=== PATIENT | female | born 1940 | race Caucasian/White ===

== ENCOUNTER 2019-12-17 11:13 | Inpatient (IN) | payer OTHER, SELFPAY ==
[~2019-12-17] VITALS: Ht 162.6 cm; Wt 94.6 kg
[2019-12-17 11:13] VITALS: BP_SYST 178
[2019-12-17] MEDS ORDERED: LR 500 ML IV.SOLN IV ONE (11:53)
[2019-12-17] MEDS ORDERED: BUPIVACAINE /EPINEPHRINE/PF 0.25% 30 ML VIAL INJ ONE (11:53)
[2019-12-17] MEDS ORDERED: ROCURONIUM BROMIDE 10 MG/ML (ZEMURON) IV ONE (11:53)
[2019-12-17] MEDS ORDERED: SEVOFLURANE 15 MIN GAS INH ONE (11:53)
[2019-12-17 12:01] LABS: BASOPHILS # (AUTO) 0.1 K/uL (0.0-0.2); EOSINOPHILS # (AUTO) 0.1 K/uL (0.0-0.4); EOSINOPHILS % (AUTO) 0.9 % (0.0-4.0); HEMATOCRIT 37.8 % (36-48); HEMOGLOBIN 12.8 g/dL (12.0-16.0); LYMPHOCYTES # (AUTO) 1.3 K/uL (1.0-5.5); LYMPHOCYTES % (AUTO) 12.9 % (20.5-51.5); MEAN CORPUSCULAR HEMOGLOBIN 31 pg (27-31); MEAN CORPUSCULAR HGB CONC 34 % (32-36); MEAN CORPUSCULAR VOLUME 93 fL (79.0-98.0); MONOCYTES % (AUTO) 9.8 % (1.7-9.3); NEUTROPHILS # (AUTO) 7.5 K/uL (1.8-7.7); NEUTROPHILS % (AUTO) 75.4 % (40.0-70.0); PLATELET COUNT (AUTO) 336 K/uL (130-430); RED BLOOD CELL COUNT(AUTO) 4.08 MIL/uL (4.2-6.2); RED CELL DISTRIBUTION WIDTH 14.1 % (9.0-15.0)
[2019-12-17 12:12] LABS: CALCIUM 9.1 mg/dL (8.4-11.0); CHLORIDE 102 mmol/L (98-107); CREATININE 0.78 mg/dL (0.55-1.30); GLUCOSE 128 mg/dL (70-99); POTASSIUM 4.3 mmol/L (3.5-5.1); SODIUM SERUM 140 mmol/L (136-145); UREA NITROGEN, BLOOD 25 mg/dL (8-21)
[2019-12-17 12:16] LABS: ALANINE AMINOTRANSFERASE 31 U/L (12-78); ALBUMIN 3.1 g/dL (3.4-4.8); ASPARTATE AMINOTRANSFERASE 28 U/L (10-37); C-REACTIVE PROTEIN QUANT 1.4 mg/dL (0-0.5); LACTATE DEHYDROGENASE 245 U/L (81-234); TOTAL BILIRUBIN 0.5 mg/dL (0.0-1.0)
[2019-12-17 12:19] LABS: ANION GAP 0 (5-15)
[2019-12-17 12:38] LABS: INR 1.1 (0.8-1.2)
[2019-12-17 12:47] LABS: FIBRINOGEN 551 mg/dL (200-400)
[2019-12-17] MEDS ORDERED: LEVO75TA7 PO (13:28)
[2019-12-17] MEDS ORDERED: CETI1TAB2 PO (13:28)
[2019-12-17] MEDS ORDERED: MULT-1164 PO (13:28)
[2019-12-17] MEDS ORDERED: FURO-149 PO (13:28)
[2019-12-17] MEDS ORDERED: POTA20TA83 PO (13:28)
[2019-12-17] MEDS ORDERED: CYAN100010 PO (13:28)
[2019-12-17] MEDS ORDERED: APIX5TAB PO (13:28)
[2019-12-17] MEDS ORDERED: AMI200 PO (13:28)
[2019-12-17] MEDS ORDERED: GUAI-723 PO (13:28)
[2019-12-17] MEDS ORDERED: FLUT1BLS5 IH (13:28)
[2019-12-17] MEDS ORDERED: LEVOFLOXACIN 500 MG/D5W 100 ML IV ONE (13:30)
[2019-12-17] MEDS ORDERED: DEXAMETHASONE SOD PHOSPHATE 10 MG/ML VIAL IVP ONE (13:30)
[2019-12-17] MEDS ORDERED: AZITHROMYCIN 500 MG in NS 250 ML IV ONE (13:30)
[2019-12-17] MEDS ORDERED: AZITHROMYCIN 500 MG/VIAL (ZITHROMAX) IV ONE (13:53)
[2019-12-17 17:18] VITALS: BP_SYST 168
[2019-12-17 17:40] VITALS: BP_SYST 150
[2019-12-17] MEDS: IPRATROPIUM/ALBUTEROL SULFATE 3 ML AMPUL.NEB (DUONEB) INH SCH (19:21)
[2019-12-17 19:45] VITALS: BP_SYST 140
[2019-12-17] MEDS: APIXABAN 2.5 MG TABLET PO SCH (21:57)
[2019-12-17 23:30] VITALS: BP_SYST 146
[2019-12-18] VITALS (13 sets, daily range): BP systolic 132–169
[2019-12-18] MEDS: IPRATROPIUM/ALBUTEROL SULFATE 3 ML AMPUL.NEB (DUONEB) INH SCH ×4 (01:00→19:30)
[2019-12-18] MEDS: LEVOTHYROXINE SODIUM 0.075 MG TABLET PO SCH (06:40)
[2019-12-18 07:10] LABS: BASOPHILS % (AUTO) 0.2 % (0.0-2.0); HEMOGLOBIN 11.7 g/dL (12.0-16.0); LYMPHOCYTES # (AUTO) 0.5 K/uL (1.0-5.5); MEAN CORPUSCULAR HEMOGLOBIN 31 pg (27-31); MEAN CORPUSCULAR HGB CONC 33 % (32-36); MEAN CORPUSCULAR VOLUME 92 fL (79.0-98.0); MONOCYTES # (AUTO) 0.2 K/uL (0.0-1.0); MONOCYTES % (AUTO) 3.3 % (1.7-9.3); NEUTROPHILS # (AUTO) 5.6 K/uL (1.8-7.7); NEUTROPHILS % (AUTO) 88.5 % (40.0-70.0); PLATELET COUNT (AUTO) 303 K/uL (130-430); RED BLOOD CELL COUNT(AUTO) 3.81 MIL/uL (4.2-6.2); WHITE BLOOD COUNT (AUTO) 6.4 K/uL (4.8-10.8)
[2019-12-18] MEDS: AMIODARONE HCL 200 MG TABLET PO SCH (09:00)
[2019-12-18 09:25] LABS: ALANINE AMINOTRANSFERASE 27 U/L (12-78); ALBUMIN 2.8 g/dL (3.4-4.8); ASPARTATE AMINOTRANSFERASE 23 U/L (10-37); C-REACTIVE PROTEIN QUANT 1.2 mg/dL (0-0.5); CALCIUM 9.2 mg/dL (8.4-11.0); CHLORIDE 102 mmol/L (98-107); CREATININE 0.72 mg/dL (0.55-1.30); GLUCOSE 127 mg/dL (70-99); POTASSIUM 4.3 mmol/L (3.5-5.1); SODIUM SERUM 139 mmol/L (136-145); THYROID STIMULATING HORMONE 0.56 uIu/mL (0.34-4.82); TOTAL BILIRUBIN 0.4 mg/dL (0.0-1.0); UREA NITROGEN, BLOOD 21 mg/dL (8-21)
[2019-12-18 09:32] LABS: ANION GAP < 3 (5-15)
[2019-12-18] MEDS: DEXAMETHASONE SOD PHOSPHATE 10 MG/ML VIAL IVP SCH (09:35)
[2019-12-18] MEDS: APIXABAN 2.5 MG TABLET PO SCH ×2 (09:36→20:45)
[2019-12-18] MEDS: CYANOCOBALAMIN 1000 mCg TABLET PO SCH (09:36)
[2019-12-18] MEDS ORDERED: CHOLECALCIFEROL (VITAMIN D3) 2,000 UNIT TABLET PO ONE (12:00)
[2019-12-18] MEDS ORDERED: ASCORBIC ACID 500 MG TABLET PO ONE (12:00)
[2019-12-18] MEDS ORDERED: IVERMECTIN 3 MG TABLET PO ONE (12:30)
[2019-12-18] MEDS: cefTRIAXone 1 GM in D5W 50 ML IV SCH (13:12)
[2019-12-18] MEDS: DOXYCYCLINE HYCLATE 100 MG CAPSULE PO SCH (20:46)
[2019-12-19] VITALS (24 sets, daily range): BP systolic 133–201
[2019-12-19] MEDS: IPRATROPIUM/ALBUTEROL SULFATE 3 ML AMPUL.NEB (DUONEB) INH SCH ×4 (01:37→19:15)
[2019-12-19 05:41] LABS: BASOPHILS % (AUTO) 0.1 % (0.0-2.0); HEMATOCRIT 33.7 % (36-48); HEMOGLOBIN 11.2 g/dL (12.0-16.0); LYMPHOCYTES # (AUTO) 0.7 K/uL (1.0-5.5); LYMPHOCYTES % (AUTO) 7.3 % (20.5-51.5); MEAN CORPUSCULAR HEMOGLOBIN 31 pg (27-31); MEAN CORPUSCULAR HGB CONC 33 % (32-36); MEAN CORPUSCULAR VOLUME 92 fL (79.0-98.0); MONOCYTES # (AUTO) 0.7 K/uL (0.0-1.0); MONOCYTES % (AUTO) 6.7 % (1.7-9.3); NEUTROPHILS # (AUTO) 8.4 K/uL (1.8-7.7); NEUTROPHILS % (AUTO) 85.9 % (40.0-70.0); PLATELET COUNT (AUTO) 291 K/uL (130-430); RED BLOOD CELL COUNT(AUTO) 3.66 MIL/uL (4.2-6.2); RED CELL DISTRIBUTION WIDTH 14.1 % (9.0-15.0); WHITE BLOOD COUNT (AUTO) 9.8 K/uL (4.8-10.8)
[2019-12-19 06:05] LABS: ALANINE AMINOTRANSFERASE 29 U/L (12-78); ALBUMIN 2.6 g/dL (3.4-4.8); ASPARTATE AMINOTRANSFERASE 24 U/L (10-37); C-REACTIVE PROTEIN QUANT 0.6 mg/dL (0-0.5); CALCIUM 9.3 mg/dL (8.4-11.0); CHLORIDE 104 mmol/L (98-107); CREATININE 0.69 mg/dL (0.55-1.30); GLUCOSE 111 mg/dL (70-99); SODIUM SERUM 141 mmol/L (136-145); TOTAL BILIRUBIN 0.4 mg/dL (0.0-1.0); UREA NITROGEN, BLOOD 23 mg/dL (8-21)
[2019-12-19 06:42] LABS: ANION GAP < 3 (5-15)
[2019-12-19] MEDS: LEVOTHYROXINE SODIUM 0.075 MG TABLET PO SCH (07:06)
[2019-12-19] MEDS: DEXAMETHASONE SOD PHOSPHATE 10 MG/ML VIAL IVP SCH (08:37)
[2019-12-19] MEDS: APIXABAN 2.5 MG TABLET PO SCH ×2 (08:40→20:50)
[2019-12-19] MEDS: DOXYCYCLINE HYCLATE 100 MG CAPSULE PO SCH ×2 (08:41→21:00)
[2019-12-19] MEDS: CYANOCOBALAMIN 1000 mCg TABLET PO SCH (08:41)
[2019-12-19] MEDS: ASCORBIC ACID 500 MG TABLET PO SCH (08:41)
[2019-12-19] MEDS: CHOLECALCIFEROL (VITAMIN D3) 2,000 UNIT TABLET PO SCH (08:43)
[2019-12-19] MEDS: AMIODARONE HCL 200 MG TABLET PO SCH (09:00)
[2019-12-19] MEDS: cefTRIAXone 1 GM in D5W 50 ML IV SCH (12:30)
[2019-12-19] MEDS ORDERED: LORazepam 2 MG/ML VIAL IVP ONE (16:15)
[2019-12-19] MEDS: ENALAPRILAT DIHYDRATE 1.25 MG/ML VIAL IVP PRN (22:05)
[2019-12-19] MEDS: LORazepam 2 MG/ML VIAL IVP PRN (22:06)
[2019-12-20] VITALS (27 sets, daily range): BP systolic 94–167
[2019-12-20] MEDS: IPRATROPIUM/ALBUTEROL SULFATE 3 ML AMPUL.NEB (DUONEB) INH SCH ×4 (01:22→19:27)
[2019-12-20] MEDS: LEVOTHYROXINE SODIUM 0.075 MG TABLET PO SCH (06:15)
[2019-12-20 06:34] LABS: BASOPHILS # (AUTO) 0.1 K/uL (0.0-0.2); BASOPHILS % (AUTO) 0.3 % (0.0-2.0); HEMATOCRIT 36.5 % (36-48); HEMOGLOBIN 11.9 g/dL (12.0-16.0); LYMPHOCYTES # (AUTO) 0.5 K/uL (1.0-5.5); LYMPHOCYTES % (AUTO) 2.6 % (20.5-51.5); MEAN CORPUSCULAR HEMOGLOBIN 30 pg (27-31); MEAN CORPUSCULAR HGB CONC 33 % (32-36); MEAN CORPUSCULAR VOLUME 93 fL (79.0-98.0); MONOCYTES # (AUTO) 1.2 K/uL (0.0-1.0); MONOCYTES % (AUTO) 6.6 % (1.7-9.3); NEUTROPHILS # (AUTO) 16.4 K/uL (1.8-7.7); NEUTROPHILS % (AUTO) 90.5 % (40.0-70.0); PLATELET COUNT (AUTO) 331 K/uL (130-430); RED BLOOD CELL COUNT(AUTO) 3.92 MIL/uL (4.2-6.2); WHITE BLOOD COUNT (AUTO) 18.2 K/uL (4.8-10.8)
[2019-12-20 07:26] LABS: ALANINE AMINOTRANSFERASE 32 U/L (12-78); ALBUMIN 2.8 g/dL (3.4-4.8); ASPARTATE AMINOTRANSFERASE 23 U/L (10-37); CALCIUM 9.5 mg/dL (8.4-11.0); CHLORIDE 102 mmol/L (98-107); CREATININE 0.77 mg/dL (0.55-1.30); GLUCOSE 125 mg/dL (70-99); POTASSIUM 3.7 mmol/L (3.5-5.1); SODIUM SERUM 141 mmol/L (136-145); TOTAL BILIRUBIN 0.4 mg/dL (0.0-1.0); UREA NITROGEN, BLOOD 29 mg/dL (8-21)
[2019-12-20 08:06] LABS: ANION GAP < 3 (5-15)
[2019-12-20] MEDS: DEXAMETHASONE SOD PHOSPHATE 10 MG/ML VIAL IVP SCH (08:45)
[2019-12-20] MEDS: CHOLECALCIFEROL (VITAMIN D3) 2,000 UNIT TABLET PO SCH (08:46)
[2019-12-20] MEDS: ASCORBIC ACID 500 MG TABLET PO SCH (08:46)
[2019-12-20] MEDS: APIXABAN 2.5 MG TABLET PO SCH ×2 (08:46→21:03)
[2019-12-20] MEDS: AMIODARONE HCL 200 MG TABLET PO SCH (08:47)
[2019-12-20] MEDS: CYANOCOBALAMIN 1000 mCg TABLET PO SCH (08:48)
[2019-12-20] MEDS: LORazepam 2 MG/ML VIAL IVP PRN (08:51)
[2019-12-20] MEDS: DOXYCYCLINE HYCLATE 100 MG CAPSULE PO SCH ×2 (09:06→21:00)
[2019-12-20] MEDS: cefTRIAXone 1 GM in D5W 50 ML IV SCH (12:00)
[2019-12-20] MEDS ORDERED: PROPOFOL 200MG/ 20ML VIAL (DIPRIVAN) IV ONE (15:15)
[2019-12-20] MEDS: PROPOFOL DRIP 1000 MG/ 100 ML BTL IV PRN (15:20)
[2019-12-20] MEDS ORDERED: PROPOFOL DRIP 100 ML IV ONE (15:26)
[2019-12-20] MEDS ORDERED: ETOMIDATE 20 MG/ 10 ML VIAL (AMIDATE) IVP ONE (16:24)
[2019-12-20] MEDS ORDERED: SUCCINYLCHOLINE CHLORIDE 20 MG/ML(QUELICIN) IVP ONE (16:24)
[2019-12-20] MEDS: VANCOMYCIN HCL 1,000 MG in NS 250 ML IV SCH (20:30)
[2019-12-20] MEDS: methylPREDNISolone SOD SUCC 40 MG/ML VIAL IVP SCH (20:59)
[2019-12-21] VITALS (30 sets, daily range): BP systolic 101–136
[2019-12-21] MEDS: IPRATROPIUM/ALBUTEROL SULFATE 3 ML AMPUL.NEB (DUONEB) INH SCH ×4 (01:02→19:48)
[2019-12-21] MEDS: PROPOFOL DRIP 1000 MG/ 100 ML BTL IV PRN ×4 (01:44→16:24)
[2019-12-21 06:05] LABS: BILIRUBIN,URINE NEGATIVE (NEGATIVE); BLOOD, URINE 3+ (NEGATIVE); CLARITY/URINE SL CLOUDY (CLEAR); COLOR,URINE YELLOW (YELLOW); GLUCOSE,URINE NEGATIVE (NEGATIVE); KETONES,URINE 1+ (NEGATIVE); LEUKOCYTE ESTERASE ,URINE TRACE (NEGATIVE); NITRITE, URINE NEGATIVE (NEGATIVE); PH,URINE 5.5 (5.0-8.0); PROTEIN URINE NEGATIVE (NEGATIVE); UROBILINOGEN,URINE 0.2 (0.2-1.0)
[2019-12-21 06:09] LABS: RBC,URINE >100 /HPF (0-3)
[2019-12-21 06:10] LABS: BACTERIA,URINE FEW /HPF (None Seen)
[2019-12-21] MEDS: LEVOTHYROXINE SODIUM 0.075 MG TABLET PO SCH (06:14)
[2019-12-21 06:19] LABS: BASOPHILS % (AUTO) 0.1 % (0.0-2.0); EOSINOPHILS % (AUTO) 0.1 % (0.0-4.0); HEMATOCRIT 30.9 % (36-48); HEMOGLOBIN 10.2 g/dL (12.0-16.0); LYMPHOCYTES # (AUTO) 0.4 K/uL (1.0-5.5); LYMPHOCYTES % (AUTO) 2.6 % (20.5-51.5); MEAN CORPUSCULAR HEMOGLOBIN 30 pg (27-31); MEAN CORPUSCULAR HGB CONC 33 % (32-36); MEAN CORPUSCULAR VOLUME 92 fL (79.0-98.0); MONOCYTES # (AUTO) 0.9 K/uL (0.0-1.0); MONOCYTES % (AUTO) 6.1 % (1.7-9.3); NEUTROPHILS # (AUTO) 13.9 K/uL (1.8-7.7); NEUTROPHILS % (AUTO) 91.1 % (40.0-70.0); PLATELET COUNT (AUTO) 242 K/uL (130-430); RED BLOOD CELL COUNT(AUTO) 3.35 MIL/uL (4.2-6.2); RED CELL DISTRIBUTION WIDTH 13.9 % (9.0-15.0); WHITE BLOOD COUNT (AUTO) 15.2 K/uL (4.8-10.8)
[2019-12-21 06:25] LABS: ALANINE AMINOTRANSFERASE 25 U/L (12-78); ALBUMIN 2.3 g/dL (3.4-4.8); ANION GAP 1 (5-15); ASPARTATE AMINOTRANSFERASE 43 U/L (10-37); CHLORIDE 106 mmol/L (98-107); CREATININE 0.74 mg/dL (0.55-1.30); GLUCOSE 148 mg/dL (70-99); POTASSIUM 3.5 mmol/L (3.5-5.1); SODIUM SERUM 143 mmol/L (136-145); TOTAL BILIRUBIN 0.9 mg/dL (0.0-1.0); UREA NITROGEN, BLOOD 29 mg/dL (8-21)
[2019-12-21] MEDS: CHOLECALCIFEROL (VITAMIN D3) 2,000 UNIT TABLET PO SCH (08:38)
[2019-12-21] MEDS: ASCORBIC ACID 500 MG TABLET PO SCH (08:38)
[2019-12-21] MEDS: DOXYCYCLINE HYCLATE 100 MG CAPSULE PO SCH ×2 (08:38→21:45)
[2019-12-21] MEDS: AMIODARONE HCL 200 MG TABLET PO SCH (08:39)
[2019-12-21] MEDS: methylPREDNISolone SOD SUCC 40 MG/ML VIAL IVP SCH ×2 (08:40→21:45)
[2019-12-21] MEDS: APIXABAN 2.5 MG TABLET PO SCH ×2 (08:41→21:45)
[2019-12-21] MEDS: CYANOCOBALAMIN 1000 mCg TABLET PO SCH (08:48)
[2019-12-21] MEDS ORDERED: methylPREDNISolone SOD SUCC 40 MG/ML VIAL ONE (09:16)
[2019-12-21] MEDS: cefTRIAXone 1 GM in D5W 50 ML IV SCH (11:56)
[2019-12-21] MEDS: VANCOMYCIN HCL 1,000 MG in NS 250 ML IV SCH (16:21)
[2019-12-22] VITALS (30 sets, daily range): BP systolic 109–144
[2019-12-22] MEDS: IPRATROPIUM/ALBUTEROL SULFATE 3 ML AMPUL.NEB (DUONEB) INH SCH ×4 (01:00→20:02)
[2019-12-22] MEDS: PROPOFOL DRIP 1000 MG/ 100 ML BTL IV PRN ×3 (05:12→18:10)
[2019-12-22] MEDS: LEVOTHYROXINE SODIUM 0.075 MG TABLET PO SCH (06:50)
[2019-12-22] MEDS ORDERED: COMMUNICATION ORDER XX ONE (08:15)
[2019-12-22 08:24] LABS: BASOPHILS # (AUTO) 0.1 K/uL (0.0-0.2); BASOPHILS % (AUTO) 0.4 % (0.0-2.0); HEMATOCRIT 29.9 % (36-48); LYMPHOCYTES # (AUTO) 0.5 K/uL (1.0-5.5); LYMPHOCYTES % (AUTO) 3.8 % (20.5-51.5); MEAN CORPUSCULAR HEMOGLOBIN 30 pg (27-31); MEAN CORPUSCULAR HGB CONC 33 % (32-36); MEAN CORPUSCULAR VOLUME 91 fL (79.0-98.0); MONOCYTES # (AUTO) 0.8 K/uL (0.0-1.0); MONOCYTES % (AUTO) 5.9 % (1.7-9.3); NEUTROPHILS # (AUTO) 12.6 K/uL (1.8-7.7); NEUTROPHILS % (AUTO) 89.9 % (40.0-70.0); PLATELET COUNT (AUTO) 209 K/uL (130-430); RED BLOOD CELL COUNT(AUTO) 3.28 MIL/uL (4.2-6.2); RED CELL DISTRIBUTION WIDTH 14.2 % (9.0-15.0)
[2019-12-22] MEDS: methylPREDNISolone SOD SUCC 40 MG/ML VIAL IVP SCH ×2 (08:33→22:44)
[2019-12-22] MEDS: APIXABAN 2.5 MG TABLET NG SCH ×2 (08:34→22:45)
[2019-12-22] MEDS: AMIODARONE HCL 200 MG TABLET NG SCH (08:34)
[2019-12-22] MEDS: ASCORBIC ACID 500 MG TABLET NG SCH (08:35)
[2019-12-22 08:58] LABS: ALANINE AMINOTRANSFERASE 29 U/L (12-78); ALBUMIN 2.1 g/dL (3.4-4.8); ANION GAP 3 (5-15); ASPARTATE AMINOTRANSFERASE 36 U/L (10-37); CALCIUM 8.5 mg/dL (8.4-11.0); CHLORIDE 103 mmol/L (98-107); CREATININE 0.76 mg/dL (0.55-1.30); GLUCOSE 173 mg/dL (70-99); POTASSIUM 3.1 mmol/L (3.5-5.1); SODIUM SERUM 141 mmol/L (136-145); UREA NITROGEN, BLOOD 32 mg/dL (8-21)
[2019-12-22] MEDS: CYANOCOBALAMIN 1000 mCg TABLET NG SCH (09:00)
[2019-12-22] MEDS: CHOLECALCIFEROL (VITAMIN D3) 2,000 UNIT TABLET NG SCH (10:21)
[2019-12-22] MEDS: DOXYCYCLINE HYCLATE 100 MG CAPSULE NG SCH ×2 (10:23→22:44)
[2019-12-22] MEDS: cefTRIAXone 1 GM in D5W 50 ML IV SCH (11:21)
[2019-12-22] MEDS ORDERED: KCL 20 mEq in 100 mL (PREMIX) 100 ML IV ONE (12:30)
[2019-12-22] MEDS: VANCOMYCIN HCL 1,000 MG in NS 250 ML IV SCH (17:17)
[2019-12-23] VITALS (35 sets, daily range): BP systolic 109–146
[2019-12-23] MEDS: IPRATROPIUM/ALBUTEROL SULFATE 3 ML AMPUL.NEB (DUONEB) INH SCH ×4 (00:53→19:53)
[2019-12-23 06:18] LABS: BASOPHILS # (AUTO) 0.1 K/uL (0.0-0.2); BASOPHILS % (AUTO) 0.5 % (0.0-2.0); EOSINOPHILS # (AUTO) 0.2 K/uL (0.0-0.4); EOSINOPHILS % (AUTO) 1.2 % (0.0-4.0); HEMATOCRIT 30.6 % (36-48); HEMOGLOBIN 10.2 g/dL (12.0-16.0); LYMPHOCYTES # (AUTO) 0.4 K/uL (1.0-5.5); LYMPHOCYTES % (AUTO) 2.3 % (20.5-51.5); MEAN CORPUSCULAR HEMOGLOBIN 30 pg (27-31); MEAN CORPUSCULAR HGB CONC 33 % (32-36); MEAN CORPUSCULAR VOLUME 91 fL (79.0-98.0); MONOCYTES # (AUTO) 0.4 K/uL (0.0-1.0); MONOCYTES % (AUTO) 2.4 % (1.7-9.3); NEUTROPHILS # (AUTO) 14.7 K/uL (1.8-7.7); NEUTROPHILS % (AUTO) 93.6 % (40.0-70.0); PLATELET COUNT (AUTO) 235 K/uL (130-430); RED BLOOD CELL COUNT(AUTO) 3.37 MIL/uL (4.2-6.2); RED CELL DISTRIBUTION WIDTH 14.1 % (9.0-15.0); WHITE BLOOD COUNT (AUTO) 15.7 K/uL (4.8-10.8)
[2019-12-23] MEDS: LEVOTHYROXINE SODIUM 0.075 MG TABLET NG SCH (06:34)
[2019-12-23 06:43] LABS: ALANINE AMINOTRANSFERASE 28 U/L (12-78); ANION GAP 4 (5-15); ASPARTATE AMINOTRANSFERASE 25 U/L (10-37); CALCIUM 8.6 mg/dL (8.4-11.0); CHLORIDE 102 mmol/L (98-107); CREATININE 0.78 mg/dL (0.55-1.30); GLUCOSE 155 mg/dL (70-99); POTASSIUM 3.4 mmol/L (3.5-5.1); SODIUM SERUM 139 mmol/L (136-145); UREA NITROGEN, BLOOD 29 mg/dL (8-21)
[2019-12-23] MEDS ORDERED: ATROPINE SULFATE 1 MG/10 ML SYRINGE IVP ONE (08:45)
[2019-12-23] MEDS ORDERED: POTASSIUM CHLORIDE 20 MEQ/PKT PACKET PO ONE (08:45)
[2019-12-23] MEDS ORDERED: FUROSEMIDE 20 MG/2 ML VIAL IVP ONE (08:45)
[2019-12-23] MEDS: BUDESONIDE 0.5 MG/2 ML AMPUL.NEB INH SCH ×2 (09:00→19:54)
[2019-12-23] MEDS: AMIODARONE HCL 200 MG TABLET NG SCH (09:00)
[2019-12-23] MEDS: methylPREDNISolone SOD SUCC 40 MG/ML VIAL IVP SCH ×2 (09:07→20:42)
[2019-12-23 09:14] LABS: ERYTHROCYTE SEDIMENTATION RATE 49 MM/HR (0-20)
[2019-12-23] MEDS: CYANOCOBALAMIN 1000 mCg TABLET NG SCH (09:19)
[2019-12-23] MEDS: ASCORBIC ACID 500 MG TABLET NG SCH (09:19)
[2019-12-23] MEDS: DOXYCYCLINE HYCLATE 100 MG CAPSULE NG SCH (09:19)
[2019-12-23] MEDS: CHOLECALCIFEROL (VITAMIN D3) 2,000 UNIT TABLET NG SCH (09:19)
[2019-12-23] MEDS: APIXABAN 2.5 MG TABLET NG SCH ×2 (09:20→20:45)
[2019-12-23] MEDS: cefTRIAXone 1 GM in D5W 50 ML IV SCH (11:43)
[2019-12-23] MEDS: LORazepam 2 MG/ML VIAL IVP PRN ×3 (13:43→21:18)
[2019-12-23] MEDS: VANCOMYCIN HCL 1,000 MG in NS 250 ML IV SCH (17:16)
[2019-12-23] MEDS: THEOPHYLLINE ANHYDROUS 80 MG/15 ML UDC PO SCH (21:00)
[2019-12-24] VITALS (34 sets, daily range): BP systolic 113–148
[2019-12-24] MEDS: IPRATROPIUM/ALBUTEROL SULFATE 3 ML AMPUL.NEB (DUONEB) INH SCH ×4 (01:00→19:51)
[2019-12-24] MEDS: PROPOFOL DRIP 1000 MG/ 100 ML BTL IV PRN (05:01)
[2019-12-24] MEDS: LORazepam 2 MG/ML VIAL IVP PRN ×4 (05:15→14:15)
[2019-12-24] MEDS: LEVOTHYROXINE SODIUM 0.075 MG TABLET NG SCH (06:04)
[2019-12-24 06:31] LABS: BASOPHILS % (AUTO) 0.2 % (0.0-2.0); HEMATOCRIT 30.4 % (36-48); LYMPHOCYTES # (AUTO) 0.4 K/uL (1.0-5.5); LYMPHOCYTES % (AUTO) 3.6 % (20.5-51.5); MEAN CORPUSCULAR HEMOGLOBIN 30 pg (27-31); MEAN CORPUSCULAR HGB CONC 33 % (32-36); MEAN CORPUSCULAR VOLUME 91 fL (79.0-98.0); MONOCYTES # (AUTO) 0.5 K/uL (0.0-1.0); MONOCYTES % (AUTO) 4.6 % (1.7-9.3); NEUTROPHILS # (AUTO) 10.2 K/uL (1.8-7.7); NEUTROPHILS % (AUTO) 91.6 % (40.0-70.0); PLATELET COUNT (AUTO) 221 K/uL (130-430); RED BLOOD CELL COUNT(AUTO) 3.35 MIL/uL (4.2-6.2); RED CELL DISTRIBUTION WIDTH 14.2 % (9.0-15.0); WHITE BLOOD COUNT (AUTO) 11.2 K/uL (4.8-10.8)
[2019-12-24] MEDS: BUDESONIDE 0.5 MG/2 ML AMPUL.NEB INH SCH ×2 (07:27→19:52)
[2019-12-24 07:37] LABS: ALANINE AMINOTRANSFERASE 30 U/L (12-78); ANION GAP 3 (5-15); ASPARTATE AMINOTRANSFERASE 18 U/L (10-37); CALCIUM 8.5 mg/dL (8.4-11.0); CHLORIDE 104 mmol/L (98-107); CREATININE 0.74 mg/dL (0.55-1.30); GLUCOSE 195 mg/dL (70-99); POTASSIUM 3.4 mmol/L (3.5-5.1); SODIUM SERUM 139 mmol/L (136-145); TOTAL BILIRUBIN 0.6 mg/dL (0.0-1.0); UREA NITROGEN, BLOOD 38 mg/dL (8-21)
[2019-12-24] MEDS: methylPREDNISolone SOD SUCC 40 MG/ML VIAL IVP SCH ×2 (08:15→20:46)
[2019-12-24] MEDS: ASCORBIC ACID 500 MG TABLET NG SCH (08:16)
[2019-12-24] MEDS: APIXABAN 2.5 MG TABLET NG SCH ×2 (08:16→20:47)
[2019-12-24] MEDS: CYANOCOBALAMIN 1000 mCg TABLET NG SCH (08:16)
[2019-12-24] MEDS: CHOLECALCIFEROL (VITAMIN D3) 2,000 UNIT TABLET NG SCH (08:17)
[2019-12-24] MEDS: THEOPHYLLINE ANHYDROUS 80 MG/15 ML UDC PO SCH ×2 (08:24→20:46)
[2019-12-24] MEDS ORDERED: THEOPHYLLINE ANHYDROUS 200 MG TAB.SR.12H PO SCH (09:00)
[2019-12-24] MEDS ORDERED: POTASSIUM CHLORIDE 20 MEQ/PKT PACKET PO ONE (09:15)
[2019-12-24] MEDS: cefTRIAXone 1 GM in D5W 50 ML IV SCH (11:00)
[2019-12-24] MEDS: VANCOMYCIN HCL 1,000 MG in NS 250 ML IV SCH (16:31)
[2019-12-24] MEDS: MONTELUKAST 10 MG TABLET PO SCH (18:26)
[2019-12-24] MEDS: QUEtiapine FUMARATE 25 MG TABLET PO SCH (20:46)
[2019-12-25] VITALS (33 sets, daily range): BP systolic 124–144
[2019-12-25] MEDS: IPRATROPIUM/ALBUTEROL SULFATE 3 ML AMPUL.NEB (DUONEB) INH SCH ×4 (01:30→20:10)
[2019-12-25 06:12] LABS: BASOPHILS % (AUTO) 0.2 % (0.0-2.0); HEMATOCRIT 29.6 % (36-48); HEMOGLOBIN 9.7 g/dL (12.0-16.0); LYMPHOCYTES # (AUTO) 0.5 K/uL (1.0-5.5); LYMPHOCYTES % (AUTO) 5.1 % (20.5-51.5); MEAN CORPUSCULAR HEMOGLOBIN 30 pg (27-31); MEAN CORPUSCULAR HGB CONC 33 % (32-36); MEAN CORPUSCULAR VOLUME 92 fL (79.0-98.0); MONOCYTES # (AUTO) 0.5 K/uL (0.0-1.0); MONOCYTES % (AUTO) 4.6 % (1.7-9.3); NEUTROPHILS # (AUTO) 9.6 K/uL (1.8-7.7); NEUTROPHILS % (AUTO) 90.1 % (40.0-70.0); PLATELET COUNT (AUTO) 233 K/uL (130-430); RED BLOOD CELL COUNT(AUTO) 3.23 MIL/uL (4.2-6.2); RED CELL DISTRIBUTION WIDTH 13.9 % (9.0-15.0); WHITE BLOOD COUNT (AUTO) 10.7 K/uL (4.8-10.8)
[2019-12-25] MEDS: LEVOTHYROXINE SODIUM 0.075 MG TABLET NG SCH (06:13)
[2019-12-25 06:50] LABS: ALANINE AMINOTRANSFERASE 25 U/L (12-78); ANION GAP 6 (5-15); ASPARTATE AMINOTRANSFERASE 15 U/L (10-37); CALCIUM 8.1 mg/dL (8.4-11.0); CHLORIDE 111 mmol/L (98-107); CREATININE 0.68 mg/dL (0.55-1.30); GLUCOSE 154 mg/dL (70-99); POTASSIUM 3.8 mmol/L (3.5-5.1); SODIUM SERUM 147 mmol/L (136-145); TOTAL BILIRUBIN 0.7 mg/dL (0.0-1.0); UREA NITROGEN, BLOOD 35 mg/dL (8-21)
[2019-12-25] MEDS: BUDESONIDE 0.5 MG/2 ML AMPUL.NEB INH SCH ×2 (07:17→20:10)
[2019-12-25] MEDS: THEOPHYLLINE ANHYDROUS 80 MG/15 ML UDC PO SCH ×2 (08:58→21:00)
[2019-12-25] MEDS: CHOLECALCIFEROL (VITAMIN D3) 2,000 UNIT TABLET NG SCH (08:59)
[2019-12-25] MEDS: APIXABAN 2.5 MG TABLET NG SCH ×2 (08:59→21:29)
[2019-12-25] MEDS: QUEtiapine FUMARATE 25 MG TABLET PO SCH ×2 (08:59→21:29)
[2019-12-25] MEDS: CYANOCOBALAMIN 1000 mCg TABLET NG SCH (09:00)
[2019-12-25] MEDS: methylPREDNISolone SOD SUCC 40 MG/ML VIAL IVP SCH ×2 (09:00→21:29)
[2019-12-25] MEDS: LORazepam 2 MG/ML VIAL IVP PRN (09:00)
[2019-12-25] MEDS: ASCORBIC ACID 500 MG TABLET NG SCH (09:07)
[2019-12-25] MEDS ORDERED: COMMUNICATION ORDER XX ONE (17:30)
[2019-12-25] MEDS: VANCOMYCIN HCL 1,000 MG in NS 250 ML IV SCH (17:30)
[2019-12-25] MEDS: MONTELUKAST 10 MG TABLET PO SCH (17:32)
[2019-12-26] VITALS (29 sets, daily range): BP systolic 107–145
[2019-12-26] MEDS: IPRATROPIUM/ALBUTEROL SULFATE 3 ML AMPUL.NEB (DUONEB) INH SCH ×4 (01:00→20:00)
[2019-12-26] MEDS: PROPOFOL DRIP 1000 MG/ 100 ML BTL IV PRN ×2 (06:05→17:40)
[2019-12-26 06:24] LABS: BASOPHILS % (AUTO) 0.2 % (0.0-2.0); HEMOGLOBIN 9.5 g/dL (12.0-16.0); LYMPHOCYTES # (AUTO) 0.6 K/uL (1.0-5.5); LYMPHOCYTES % (AUTO) 5.2 % (20.5-51.5); MEAN CORPUSCULAR HEMOGLOBIN 30 pg (27-31); MEAN CORPUSCULAR HGB CONC 33 % (32-36); MEAN CORPUSCULAR VOLUME 91 fL (79.0-98.0); MONOCYTES # (AUTO) 0.4 K/uL (0.0-1.0); MONOCYTES % (AUTO) 3.1 % (1.7-9.3); NEUTROPHILS # (AUTO) 10.6 K/uL (1.8-7.7); NEUTROPHILS % (AUTO) 91.5 % (40.0-70.0); PLATELET COUNT (AUTO) 249 K/uL (130-430); RED CELL DISTRIBUTION WIDTH 13.8 % (9.0-15.0); WHITE BLOOD COUNT (AUTO) 11.5 K/uL (4.8-10.8)
[2019-12-26] MEDS: LEVOTHYROXINE SODIUM 0.075 MG TABLET NG SCH (06:56)
[2019-12-26 06:57] LABS: ALANINE AMINOTRANSFERASE 21 U/L (12-78); ANION GAP 6 (5-15); ASPARTATE AMINOTRANSFERASE 18 U/L (10-37); CALCIUM 8.1 mg/dL (8.4-11.0); CHLORIDE 110 mmol/L (98-107); CREATININE 0.59 mg/dL (0.55-1.30); GLUCOSE 161 mg/dL (70-99); POTASSIUM 3.5 mmol/L (3.5-5.1); SODIUM SERUM 144 mmol/L (136-145); TOTAL BILIRUBIN 0.7 mg/dL (0.0-1.0); UREA NITROGEN, BLOOD 35 mg/dL (8-21)
[2019-12-26] MEDS: BUDESONIDE 0.5 MG/2 ML AMPUL.NEB INH SCH ×2 (08:58→20:00)
[2019-12-26] MEDS: methylPREDNISolone SOD SUCC 40 MG/ML VIAL IVP SCH (09:42)
[2019-12-26] MEDS: QUEtiapine FUMARATE 25 MG TABLET PO SCH ×2 (09:42→20:17)
[2019-12-26] MEDS: CYANOCOBALAMIN 1000 mCg TABLET NG SCH (09:42)
[2019-12-26] MEDS: CHOLECALCIFEROL (VITAMIN D3) 2,000 UNIT TABLET NG SCH (09:42)
[2019-12-26] MEDS: ASCORBIC ACID 500 MG TABLET NG SCH (09:43)
[2019-12-26] MEDS: APIXABAN 2.5 MG TABLET NG SCH ×2 (09:43→20:20)
[2019-12-26 09:51] LABS: C-REACTIVE PROTEIN QUANT 5.1 mg/dL (0-0.5)
[2019-12-26] MEDS: THEOPHYLLINE ANHYDROUS 80 MG/15 ML UDC PO SCH ×2 (10:49→20:19)
[2019-12-26] MEDS: CEFEPIME 0.5 GM in D5W 50 ML IV SCH ×2 (12:47→23:42)
[2019-12-26] MEDS: methylPREDNISolone SOD SUCC/PF 62.5 MG/ML VIAL IVP SCH ×2 (14:49→20:17)
[2019-12-26] MEDS: VANCOMYCIN HCL 1,000 MG in D5W 250 ML IV SCH (17:38)
[2019-12-26] MEDS: MONTELUKAST 10 MG TABLET PO SCH (17:38)
[2019-12-26] MEDS: ATROPINE SULFATE 1 MG/10 ML SYRINGE IVP PRN (17:40)
[2019-12-27] VITALS (35 sets, daily range): BP systolic 113–147
[2019-12-27] MEDS: IPRATROPIUM/ALBUTEROL SULFATE 3 ML AMPUL.NEB (DUONEB) INH SCH ×4 (01:00→20:16)
[2019-12-27] MEDS: methylPREDNISolone SOD SUCC/PF 62.5 MG/ML VIAL IVP SCH ×4 (02:45→20:27)
[2019-12-27] MEDS: LEVOTHYROXINE SODIUM 0.075 MG TABLET NG SCH (05:55)
[2019-12-27 06:30] LABS: BASOPHILS % (AUTO) 0.2 % (0.0-2.0); HEMATOCRIT 30.6 % (36-48); HEMOGLOBIN 10.1 g/dL (12.0-16.0); LYMPHOCYTES # (AUTO) 0.7 K/uL (1.0-5.5); LYMPHOCYTES % (AUTO) 6.3 % (20.5-51.5); MEAN CORPUSCULAR HEMOGLOBIN 30 pg (27-31); MEAN CORPUSCULAR HGB CONC 33 % (32-36); MEAN CORPUSCULAR VOLUME 90 fL (79.0-98.0); MONOCYTES # (AUTO) 0.3 K/uL (0.0-1.0); MONOCYTES % (AUTO) 2.4 % (1.7-9.3); NEUTROPHILS # (AUTO) 10.5 K/uL (1.8-7.7); NEUTROPHILS % (AUTO) 91.1 % (40.0-70.0); PLATELET COUNT (AUTO) 269 K/uL (130-430); RED BLOOD CELL COUNT(AUTO) 3.39 MIL/uL (4.2-6.2); RED CELL DISTRIBUTION WIDTH 13.6 % (9.0-15.0); WHITE BLOOD COUNT (AUTO) 11.5 K/uL (4.8-10.8)
[2019-12-27] MEDS: PROPOFOL DRIP 1000 MG/ 100 ML BTL IV PRN ×2 (06:51→16:07)
[2019-12-27 06:57] LABS: ANION GAP 9 (5-15); CALCIUM 8.1 mg/dL (8.4-11.0); CHLORIDE 107 mmol/L (98-107); CREATININE 0.59 mg/dL (0.55-1.30); GLUCOSE 177 mg/dL (70-99); POTASSIUM 3.2 mmol/L (3.5-5.1); SODIUM SERUM 142 mmol/L (136-145); UREA NITROGEN, BLOOD 37 mg/dL (8-21)
[2019-12-27] MEDS: BUDESONIDE 0.5 MG/2 ML AMPUL.NEB INH SCH ×2 (07:31→20:16)
[2019-12-27] MEDS: CHOLECALCIFEROL (VITAMIN D3) 2,000 UNIT TABLET NG SCH (07:54)
[2019-12-27] MEDS: APIXABAN 2.5 MG TABLET NG SCH ×2 (07:54→20:30)
[2019-12-27] MEDS: THEOPHYLLINE ANHYDROUS 80 MG/15 ML UDC PO SCH ×2 (07:54→20:27)
[2019-12-27] MEDS: ASCORBIC ACID 500 MG TABLET NG SCH (07:54)
[2019-12-27] MEDS: CYANOCOBALAMIN 1000 mCg TABLET NG SCH (07:54)
[2019-12-27] MEDS: QUEtiapine FUMARATE 25 MG TABLET PO SCH ×2 (07:55→20:27)
[2019-12-27 09:15] LABS: PHOSPHORUS 3.2 mg/dL (2.7-4.5)
[2019-12-27] MEDS: LORazepam 2 MG/ML VIAL IVP PRN (09:26)
[2019-12-27] MEDS ORDERED: POTASSIUM CHLORIDE 40 MEQ, LIDOCAINE JECT 2% PF 100 MG 50 MG in NS 250 ML IV ONE (09:30)
[2019-12-27] MEDS ORDERED: LIDOCAINE 2% JELLY UROJECT 10 ML MM ONE (12:23)
[2019-12-27] MEDS ORDERED: LIDOCAINE 1%, 20 ML MDV 0 ML ONE (12:23)
[2019-12-27] MEDS: CEFEPIME 0.5 GM in D5W 50 ML IV SCH (12:43)
[2019-12-27] MEDS ORDERED: FUROSEMIDE 20 MG/2 ML VIAL IVP ONE (13:15)
[2019-12-27] MEDS ORDERED: KCL 40 mEq in 100 mL (PREMIX) 100 ML IV ONE (13:30)
[2019-12-27] MEDS: VANCOMYCIN HCL 1,000 MG in D5W 250 ML IV SCH (16:06)
[2019-12-27] MEDS: MONTELUKAST 10 MG TABLET PO SCH (17:12)
[2019-12-27] MEDS: ATROPINE SULFATE 1 MG/10 ML SYRINGE IVP PRN ×3 (17:13→22:10)
[2019-12-27] MEDS: FUROSEMIDE 20 MG/2 ML VIAL IVP SCH (20:27)
[2019-12-28] VITALS (34 sets, daily range): BP systolic 91–152
[2019-12-28] MEDS: CEFEPIME 0.5 GM in D5W 50 ML IV SCH ×2 (00:14→13:02)
[2019-12-28] MEDS: ATROPINE SULFATE 1 MG/10 ML SYRINGE IVP PRN (00:14)
[2019-12-28] MEDS: IPRATROPIUM/ALBUTEROL SULFATE 3 ML AMPUL.NEB (DUONEB) INH SCH ×4 (01:03→19:00)
[2019-12-28] MEDS: methylPREDNISolone SOD SUCC/PF 62.5 MG/ML VIAL IVP SCH ×4 (03:06→21:15)
[2019-12-28 05:41] LABS: BASOPHILS % (AUTO) 0.3 % (0.0-2.0); HEMATOCRIT 32.4 % (36-48); HEMOGLOBIN 10.5 g/dL (12.0-16.0); LYMPHOCYTES # (AUTO) 0.6 K/uL (1.0-5.5); MEAN CORPUSCULAR HEMOGLOBIN 30 pg (27-31); MEAN CORPUSCULAR HGB CONC 33 % (32-36); MEAN CORPUSCULAR VOLUME 91 fL (79.0-98.0); MONOCYTES # (AUTO) 0.3 K/uL (0.0-1.0); MONOCYTES % (AUTO) 2.7 % (1.7-9.3); NEUTROPHILS # (AUTO) 10.4 K/uL (1.8-7.7); PLATELET COUNT (AUTO) 290 K/uL (130-430); RED BLOOD CELL COUNT(AUTO) 3.56 MIL/uL (4.2-6.2); RED CELL DISTRIBUTION WIDTH 13.7 % (9.0-15.0); WHITE BLOOD COUNT (AUTO) 11.3 K/uL (4.8-10.8)
[2019-12-28 05:57] LABS: ALANINE AMINOTRANSFERASE 22 U/L (12-78); ALBUMIN 2.1 g/dL (3.4-4.8); ANION GAP 10 (5-15); ASPARTATE AMINOTRANSFERASE 13 U/L (10-37); CALCIUM 8.3 mg/dL (8.4-11.0); CHLORIDE 107 mmol/L (98-107); GLUCOSE 195 mg/dL (70-99); POTASSIUM 3.6 mmol/L (3.5-5.1); SODIUM SERUM 141 mmol/L (136-145); TOTAL BILIRUBIN 0.9 mg/dL (0.0-1.0); UREA NITROGEN, BLOOD 37 mg/dL (8-21)
[2019-12-28] MEDS: LEVOTHYROXINE SODIUM 0.075 MG TABLET NG SCH (06:00)
[2019-12-28] MEDS: BUDESONIDE 0.5 MG/2 ML AMPUL.NEB INH SCH ×2 (07:11→19:00)
[2019-12-28] MEDS: QUEtiapine FUMARATE 25 MG TABLET PO SCH ×2 (08:16→21:13)
[2019-12-28] MEDS: ASCORBIC ACID 500 MG TABLET NG SCH (08:16)
[2019-12-28] MEDS: CYANOCOBALAMIN 1000 mCg TABLET NG SCH (08:16)
[2019-12-28] MEDS: CHOLECALCIFEROL (VITAMIN D3) 2,000 UNIT TABLET NG SCH (08:16)
[2019-12-28] MEDS: THEOPHYLLINE ANHYDROUS 80 MG/15 ML UDC PO SCH ×2 (08:17→21:11)
[2019-12-28] MEDS: FUROSEMIDE 20 MG/2 ML VIAL IVP SCH ×2 (08:17→21:12)
[2019-12-28] MEDS: APIXABAN 2.5 MG TABLET NG SCH ×2 (08:18→21:13)
[2019-12-28] MEDS: VANCOMYCIN HCL 1,000 MG in D5W 250 ML IV SCH (16:13)
[2019-12-28] MEDS: MONTELUKAST 10 MG TABLET PO SCH (17:27)
[2019-12-29] VITALS (37 sets, daily range): BP systolic 12–144
[2019-12-29] MEDS: CEFEPIME 0.5 GM in D5W 50 ML IV SCH ×2 (00:17→11:51)
[2019-12-29] MEDS: LORazepam 2 MG/ML VIAL IVP PRN ×2 (00:52→03:58)
[2019-12-29] MEDS: IPRATROPIUM/ALBUTEROL SULFATE 3 ML AMPUL.NEB (DUONEB) INH SCH ×4 (01:00→19:41)
[2019-12-29] MEDS: methylPREDNISolone SOD SUCC/PF 62.5 MG/ML VIAL IVP SCH ×3 (03:58→16:18)
[2019-12-29] MEDS: PROPOFOL DRIP 1000 MG/ 100 ML BTL IV PRN (04:33)
[2019-12-29] MEDS: LEVOTHYROXINE SODIUM 0.075 MG TABLET NG SCH (06:14)
[2019-12-29 06:18] LABS: ALANINE AMINOTRANSFERASE 21 U/L (12-78); ALBUMIN 2.2 g/dL (3.4-4.8); ANION GAP 9 (5-15); ASPARTATE AMINOTRANSFERASE 11 U/L (10-37); CALCIUM 8.4 mg/dL (8.4-11.0); CHLORIDE 106 mmol/L (98-107); CREATININE 0.62 mg/dL (0.55-1.30); GLUCOSE 172 mg/dL (70-99); SODIUM SERUM 141 mmol/L (136-145); UREA NITROGEN, BLOOD 38 mg/dL (8-21)
[2019-12-29 06:24] LABS: BASOPHILS % (AUTO) 0.2 % (0.0-2.0); EOSINOPHILS % (AUTO) 0.1 % (0.0-4.0); HEMATOCRIT 33.1 % (36-48); HEMOGLOBIN 11.1 g/dL (12.0-16.0); LYMPHOCYTES # (AUTO) 0.6 K/uL (1.0-5.5); LYMPHOCYTES % (AUTO) 4.6 % (20.5-51.5); MEAN CORPUSCULAR HEMOGLOBIN 30 pg (27-31); MEAN CORPUSCULAR HGB CONC 34 % (32-36); MEAN CORPUSCULAR VOLUME 90 fL (79.0-98.0); MONOCYTES # (AUTO) 0.4 K/uL (0.0-1.0); MONOCYTES % (AUTO) 2.6 % (1.7-9.3); NEUTROPHILS % (AUTO) 92.5 % (40.0-70.0); PLATELET COUNT (AUTO) 312 K/uL (130-430); RED BLOOD CELL COUNT(AUTO) 3.69 MIL/uL (4.2-6.2); RED CELL DISTRIBUTION WIDTH 13.8 % (9.0-15.0)
[2019-12-29 07:12] LABS: POTASSIUM 2.9 mmol/L (3.5-5.1)
[2019-12-29] MEDS: BUDESONIDE 0.5 MG/2 ML AMPUL.NEB INH SCH ×2 (07:46→21:00)
[2019-12-29] MEDS: APIXABAN 2.5 MG TABLET NG SCH ×2 (08:07→22:01)
[2019-12-29] MEDS: CHOLECALCIFEROL (VITAMIN D3) 2,000 UNIT TABLET NG SCH (08:07)
[2019-12-29] MEDS: QUEtiapine FUMARATE 25 MG TABLET PO SCH ×2 (08:08→21:37)
[2019-12-29] MEDS: ASCORBIC ACID 500 MG TABLET NG SCH (08:08)
[2019-12-29] MEDS: CYANOCOBALAMIN 1000 mCg TABLET NG SCH (08:09)
[2019-12-29] MEDS: FUROSEMIDE 20 MG/2 ML VIAL IVP SCH ×2 (08:10→21:37)
[2019-12-29] MEDS: THEOPHYLLINE ANHYDROUS 80 MG/15 ML UDC PO SCH ×2 (08:10→21:37)
[2019-12-29] MEDS ORDERED: ACETAMINOPHEN 500 MG TABLET PO PRN (08:15)
[2019-12-29] MEDS ORDERED: KCL 40 mEq in 100 mL (PREMIX) 100 ML IV ONE (08:45)
[2019-12-29] MEDS ORDERED: POTASSIUM CHLORIDE 40 MEQ, LIDOCAINE JECT 2% PF 100 MG 50 MG in NS 250 ML IV ONE (09:00)
[2019-12-29] MEDS ORDERED: METOCLOPRAMIDE HCL 10 MG/2 ML VIAL IVP PRN (11:00)
[2019-12-29] MEDS: INSULIN LISPRO SLIDING SCALE 100 UNITS/ML VIAL (humaLOG) SUBCUT PRN ×2 (12:05→17:31)
[2019-12-29] MEDS: PROPOFOL DRIP 100 ML IV PRN (16:19)
[2019-12-29] MEDS: MONTELUKAST 10 MG TABLET PO SCH (17:13)
[2019-12-29] MEDS: VANCOMYCIN HCL 1,000 MG in D5W 250 ML IV SCH (17:13)
[2019-12-29] MEDS ORDERED: HYDROcodone/ACETAMIN 5-325 MG TAB (NORCO/ VICODIN) PO PRN (22:15)
[2019-12-30] VITALS (31 sets, daily range): BP systolic 79–173
[2019-12-30] MEDS: methylPREDNISolone SOD SUCC/PF 62.5 MG/ML VIAL IVP SCH ×3 (00:36→15:41)
[2019-12-30] MEDS: CEFEPIME 0.5 GM in D5W 50 ML IV SCH ×2 (00:44→12:45)
[2019-12-30] MEDS: INSULIN LISPRO SLIDING SCALE 100 UNITS/ML VIAL (humaLOG) SUBCUT PRN ×4 (00:45→18:20)
[2019-12-30] MEDS: IPRATROPIUM/ALBUTEROL SULFATE 3 ML AMPUL.NEB (DUONEB) INH SCH ×4 (01:32→19:38)
[2019-12-30 06:32] LABS: BASOPHILS # (AUTO) 0.1 K/uL (0.0-0.2); BASOPHILS % (AUTO) 0.4 % (0.0-2.0); HEMATOCRIT 35.9 % (36-48); HEMOGLOBIN 11.8 g/dL (12.0-16.0); LYMPHOCYTES # (AUTO) 0.5 K/uL (1.0-5.5); LYMPHOCYTES % (AUTO) 2.5 % (20.5-51.5); MEAN CORPUSCULAR HEMOGLOBIN 30 pg (27-31); MEAN CORPUSCULAR HGB CONC 33 % (32-36); MEAN CORPUSCULAR VOLUME 90 fL (79.0-98.0); MONOCYTES # (AUTO) 0.2 K/uL (0.0-1.0); MONOCYTES % (AUTO) 1.1 % (1.7-9.3); NEUTROPHILS # (AUTO) 17.8 K/uL (1.8-7.7); PLATELET COUNT (AUTO) 324 K/uL (130-430); RED BLOOD CELL COUNT(AUTO) 3.97 MIL/uL (4.2-6.2); RED CELL DISTRIBUTION WIDTH 13.7 % (9.0-15.0); WHITE BLOOD COUNT (AUTO) 18.5 K/uL (4.8-10.8)
[2019-12-30 06:34] LABS: ANION GAP 9 (5-15); CALCIUM 8.5 mg/dL (8.4-11.0); CHLORIDE 106 mmol/L (98-107); CREATININE 0.66 mg/dL (0.55-1.30); GLUCOSE 177 mg/dL (70-99); POTASSIUM 3.1 mmol/L (3.5-5.1); SODIUM SERUM 140 mmol/L (136-145); UREA NITROGEN, BLOOD 41 mg/dL (8-21)
[2019-12-30] MEDS: PROPOFOL DRIP 100 ML IV PRN ×2 (06:40→06:53)
[2019-12-30] MEDS: LEVOTHYROXINE SODIUM 0.075 MG TABLET NG SCH (06:53)
[2019-12-30] MEDS: BUDESONIDE 0.5 MG/2 ML AMPUL.NEB INH SCH ×2 (07:22→19:38)
[2019-12-30] MEDS: CHOLECALCIFEROL (VITAMIN D3) 2,000 UNIT TABLET NG SCH (08:34)
[2019-12-30] MEDS: ASCORBIC ACID 500 MG TABLET NG SCH (08:34)
[2019-12-30] MEDS: FUROSEMIDE 20 MG/2 ML VIAL IVP SCH ×2 (08:34→21:18)
[2019-12-30] MEDS: QUEtiapine FUMARATE 25 MG TABLET PO SCH ×2 (08:34→21:00)
[2019-12-30] MEDS: APIXABAN 2.5 MG TABLET NG SCH ×2 (08:35→21:00)
[2019-12-30] MEDS: CYANOCOBALAMIN 1000 mCg TABLET NG SCH (08:37)
[2019-12-30] MEDS: THEOPHYLLINE ANHYDROUS 80 MG/15 ML UDC PO SCH ×2 (08:37→21:00)
[2019-12-30] MEDS ORDERED: POTASSIUM CHLORIDE 40 MEQ, LIDOCAINE JECT 2% PF 100 MG 50 MG in NS 250 ML IV ONE (09:15)
[2019-12-30] MEDS: LORazepam 2 MG/ML VIAL IVP PRN (12:45)
[2019-12-30] MEDS: FLUCONAZOLE 100 mg/ NS 50 ML IV SCH (13:00)
[2019-12-30] MEDS ORDERED: FUROSEMIDE 20 MG/2 ML VIAL IVP ONE (15:30)
[2019-12-30] MEDS: MONTELUKAST 10 MG TABLET PO SCH (17:35)
[2019-12-30] MEDS: VANCOMYCIN HCL 1,000 MG in D5W 250 ML IV SCH (17:38)
[2019-12-30] MEDS: KCL 20 mEq in NS 1000 mL 1,000 ML IV SCH (18:17)
[2019-12-30] MEDS: ENALAPRILAT DIHYDRATE 1.25 MG/ML VIAL IVP PRN (21:58)
[2019-12-30] MEDS ORDERED: PROPOFOL DRIP 100 ML IV ONE (23:04)
[2019-12-31] VITALS (31 sets, daily range): BP systolic 74–125
[2019-12-31] MEDS: methylPREDNISolone SOD SUCC/PF 62.5 MG/ML VIAL IVP SCH ×4 (00:34→23:53)
[2019-12-31] MEDS: CEFEPIME 0.5 GM in D5W 50 ML IV SCH ×2 (00:48→12:12)
[2019-12-31] MEDS: NOREPINEPHRINE BITARTRATE 4 MG in NS 246 ML IV PRN ×2 (00:48→13:43)
[2019-12-31] MEDS ORDERED: NOREPINEPHRINE 4 MG/4 ML VIAL IV ONE (00:51)
[2019-12-31] MEDS: QUEtiapine FUMARATE 25 MG TABLET PO SCH (00:57)
[2019-12-31] MEDS: APIXABAN 2.5 MG TABLET NG SCH ×2 (00:57→21:45)
[2019-12-31] MEDS: INSULIN LISPRO SLIDING SCALE 100 UNITS/ML VIAL (humaLOG) SUBCUT PRN ×4 (00:57→23:51)
[2019-12-31] MEDS: THEOPHYLLINE ANHYDROUS 80 MG/15 ML UDC PO SCH ×2 (00:59→08:59)
[2019-12-31] MEDS: IPRATROPIUM/ALBUTEROL SULFATE 3 ML AMPUL.NEB (DUONEB) INH SCH ×3 (02:08→19:43)
[2019-12-31 06:26] LABS: BASOPHILS # (AUTO) 0.1 K/uL (0.0-0.2); BASOPHILS % (AUTO) 0.4 % (0.0-2.0); HEMATOCRIT 33.5 % (36-48); LYMPHOCYTES # (AUTO) 0.5 K/uL (1.0-5.5); LYMPHOCYTES % (AUTO) 1.7 % (20.5-51.5); MEAN CORPUSCULAR HEMOGLOBIN 30 pg (27-31); MEAN CORPUSCULAR HGB CONC 33 % (32-36); MEAN CORPUSCULAR VOLUME 90 fL (79.0-98.0); MONOCYTES # (AUTO) 0.3 K/uL (0.0-1.0); MONOCYTES % (AUTO) 0.9 % (1.7-9.3); NEUTROPHILS # (AUTO) 30.2 K/uL (1.8-7.7); PLATELET COUNT (AUTO) 416 K/uL (130-430); RED BLOOD CELL COUNT(AUTO) 3.72 MIL/uL (4.2-6.2)
[2019-12-31 06:36] LABS: ANION GAP 9 (5-15); CALCIUM 8.4 mg/dL (8.4-11.0); CHLORIDE 106 mmol/L (98-107); CREATININE 1.01 mg/dL (0.55-1.30); GLUCOSE 162 mg/dL (70-99); POTASSIUM 3.8 mmol/L (3.5-5.1); SODIUM SERUM 141 mmol/L (136-145); UREA NITROGEN, BLOOD 46 mg/dL (8-21)
[2019-12-31] MEDS: PROPOFOL DRIP 100 ML IV PRN ×3 (07:04→21:17)
[2019-12-31] MEDS: BUDESONIDE 0.5 MG/2 ML AMPUL.NEB INH SCH ×2 (07:35→19:43)
[2019-12-31] MEDS: LEVOTHYROXINE SODIUM 0.075 MG TABLET NG SCH (08:14)
[2019-12-31] MEDS: CHOLECALCIFEROL (VITAMIN D3) 2,000 UNIT TABLET NG SCH (08:51)
[2019-12-31] MEDS: ASCORBIC ACID 500 MG TABLET NG SCH (08:51)
[2019-12-31 08:54] LABS: WHITE BLOOD COUNT (AUTO) 31.2 K/uL (4.8-10.8)
[2019-12-31] MEDS: CYANOCOBALAMIN 1000 mCg TABLET NG SCH (08:59)
[2019-12-31] MEDS: FUROSEMIDE 20 MG/2 ML VIAL IVP SCH ×2 (09:00→21:45)
[2019-12-31] MEDS ORDERED: NS 500 ML IV ONE (09:45)
[2019-12-31] MEDS ORDERED: ROCURONIUM BROMIDE 10 MG/ML (ZEMURON) IV ONE (12:44)
[2019-12-31] MEDS ORDERED: ETOMIDATE 20 MG/ 10 ML VIAL (AMIDATE) IVP ONE (12:44)
[2019-12-31] MEDS: FLUCONAZOLE 100 mg/ NS 50 ML IV SCH (13:42)
[2019-12-31] MEDS: LORazepam 2 MG/ML VIAL IVP PRN ×2 (13:42→21:17)
[2019-12-31] MEDS: MEROPENEM 500 MG in NS 50 ML IV SCH ×2 (15:03→23:03)
[2019-12-31] MEDS: VANCOMYCIN HCL 1,000 MG in D5W 250 ML IV SCH (16:39)
[2019-12-31] MEDS: KCL 20 mEq in NS 1000 mL 1,000 ML IV SCH (18:05)
[2019-12-31] MEDS: MONTELUKAST 10 MG TABLET PO SCH (18:05)
[2019-12-31] MEDS ORDERED: COMMUNICATION ORDER XX ONE (19:30)
[2019-12-31] MEDS ORDERED: HYDROcodone/ACETAMIN 5-325 MG TAB (NORCO/ VICODIN) GT PRN (19:34)
[2019-12-31] MEDS: DOCUSATE SODIUM 100 MG/10 ML UDC GT SCH (21:00)
[2019-12-31] MEDS: THEOPHYLLINE ANHYDROUS 80 MG/15 ML UDC GT SCH (21:45)
[2019-12-31] MEDS: QUEtiapine FUMARATE 25 MG TABLET GT SCH (22:57)
[2020-01-01] VITALS (34 sets, daily range): BP systolic 92–156
[2020-01-01] MEDS: IPRATROPIUM/ALBUTEROL SULFATE 3 ML AMPUL.NEB (DUONEB) INH SCH ×4 (01:38→19:55)
[2020-01-01] MEDS: PROPOFOL DRIP 100 ML IV PRN ×3 (05:27→21:33)
[2020-01-01] MEDS: LORazepam 2 MG/ML VIAL IVP PRN ×3 (05:45→21:59)
[2020-01-01] MEDS: INSULIN LISPRO SLIDING SCALE 100 UNITS/ML VIAL (humaLOG) SUBCUT PRN ×3 (05:54→18:07)
[2020-01-01 05:57] LABS: BASOPHILS # (AUTO) 0.1 K/uL (0.0-0.2); BASOPHILS % (AUTO) 0.7 % (0.0-2.0); EOSINOPHILS # (AUTO) 0.1 K/uL (0.0-0.4); EOSINOPHILS % (AUTO) 0.4 % (0.0-4.0); HEMOGLOBIN 10.5 g/dL (12.0-16.0); LYMPHOCYTES # (AUTO) 0.4 K/uL (1.0-5.5); LYMPHOCYTES % (AUTO) 1.6 % (20.5-51.5); MEAN CORPUSCULAR HEMOGLOBIN 31 pg (27-31); MEAN CORPUSCULAR HGB CONC 34 % (32-36); MEAN CORPUSCULAR VOLUME 90 fL (79.0-98.0); MONOCYTES # (AUTO) 0.2 K/uL (0.0-1.0); MONOCYTES % (AUTO) 0.7 % (1.7-9.3); NEUTROPHILS # (AUTO) 21.6 K/uL (1.8-7.7); NEUTROPHILS % (AUTO) 96.6 % (40.0-70.0); PLATELET COUNT (AUTO) 338 K/uL (130-430); RED BLOOD CELL COUNT(AUTO) 3.43 MIL/uL (4.2-6.2); WHITE BLOOD COUNT (AUTO) 22.4 K/uL (4.8-10.8)
[2020-01-01 06:18] LABS: ALANINE AMINOTRANSFERASE 20 U/L (12-78); ALBUMIN 2.2 g/dL (3.4-4.8); ANION GAP 10 (5-15); ASPARTATE AMINOTRANSFERASE 16 U/L (10-37); CALCIUM 8.3 mg/dL (8.4-11.0); CHLORIDE 106 mmol/L (98-107); GLUCOSE 179 mg/dL (70-99); POTASSIUM 3.4 mmol/L (3.5-5.1); SODIUM SERUM 140 mmol/L (136-145); TOTAL BILIRUBIN 0.8 mg/dL (0.0-1.0); UREA NITROGEN, BLOOD 44 mg/dL (8-21)
[2020-01-01] MEDS: MEROPENEM 500 MG in NS 50 ML IV SCH ×3 (06:40→22:16)
[2020-01-01] MEDS: LEVOTHYROXINE SODIUM 0.075 MG TABLET NG SCH (06:40)
[2020-01-01] MEDS: BUDESONIDE 0.5 MG/2 ML AMPUL.NEB INH SCH ×2 (07:24→19:55)
[2020-01-01] MEDS ORDERED: POTASSIUM CHLORIDE 10 MEQ TAB.PRT.SR NG ONE (08:30)
[2020-01-01] MEDS: DOCUSATE SODIUM 100 MG/10 ML UDC GT SCH ×2 (08:42→21:55)
[2020-01-01] MEDS: methylPREDNISolone SOD SUCC/PF 62.5 MG/ML VIAL IVP SCH ×2 (08:42→18:03)
[2020-01-01] MEDS: QUEtiapine FUMARATE 25 MG TABLET GT SCH ×2 (08:42→21:55)
[2020-01-01] MEDS: ASCORBIC ACID 500 MG TABLET NG SCH (08:43)
[2020-01-01] MEDS: CHOLECALCIFEROL (VITAMIN D3) 2,000 UNIT TABLET NG SCH (08:43)
[2020-01-01] MEDS: CYANOCOBALAMIN 1000 mCg TABLET NG SCH (08:43)
[2020-01-01] MEDS: THEOPHYLLINE ANHYDROUS 80 MG/15 ML UDC GT SCH ×2 (08:45→21:58)
[2020-01-01] MEDS: APIXABAN 2.5 MG TABLET NG SCH (08:46)
[2020-01-01] MEDS: FUROSEMIDE 20 MG/2 ML VIAL IVP SCH ×2 (08:46→21:55)
[2020-01-01] MEDS: FLUCONAZOLE 100 mg/ NS 50 ML IV SCH (12:47)
[2020-01-01] MEDS: MONTELUKAST 10 MG TABLET GT SCH (18:04)
[2020-01-01] MEDS: KCL 20 mEq in NS 1000 mL 1,000 ML IV SCH (20:29)
[2020-01-01] MEDS: methylPREDNISolone SOD SUCC 40 MG/ML VIAL IVP SCH (21:56)
[2020-01-01] MEDS: HEPARIN SODIUM,PORCINE 5,000 UNITS/ML VIAL SUBCUT SCH (22:05)
[2020-01-01 22:55] LABS: PROTHROMBIN TIME 10.7 SECS (9.5-12.5)
[2020-01-02] VITALS (35 sets, daily range): BP systolic 89–145
[2020-01-02] MEDS: INSULIN LISPRO SLIDING SCALE 100 UNITS/ML VIAL (humaLOG) SUBCUT PRN ×2 (00:26→06:23)
[2020-01-02] MEDS: IPRATROPIUM/ALBUTEROL SULFATE 3 ML AMPUL.NEB (DUONEB) INH SCH ×4 (01:00→19:43)
[2020-01-02 05:34] LABS: BASOPHILS # (AUTO) 0.1 K/uL (0.0-0.2); BASOPHILS % (AUTO) 0.4 % (0.0-2.0); HEMATOCRIT 28.6 % (36-48); HEMOGLOBIN 9.5 g/dL (12.0-16.0); LYMPHOCYTES # (AUTO) 0.3 K/uL (1.0-5.5); MEAN CORPUSCULAR HEMOGLOBIN 30 pg (27-31); MEAN CORPUSCULAR HGB CONC 33 % (32-36); MEAN CORPUSCULAR VOLUME 90 fL (79.0-98.0); MONOCYTES # (AUTO) 0.3 K/uL (0.0-1.0); MONOCYTES % (AUTO) 1.9 % (1.7-9.3); NEUTROPHILS # (AUTO) 14.4 K/uL (1.8-7.7); NEUTROPHILS % (AUTO) 95.7 % (40.0-70.0); PLATELET COUNT (AUTO) 222 K/uL (130-430); RED BLOOD CELL COUNT(AUTO) 3.17 MIL/uL (4.2-6.2); RED CELL DISTRIBUTION WIDTH 14.1 % (9.0-15.0); WHITE BLOOD COUNT (AUTO) 15.1 K/uL (4.8-10.8)
[2020-01-02 05:44] LABS: ANION GAP 7 (5-15); CALCIUM 8.3 mg/dL (8.4-11.0); CHLORIDE 108 mmol/L (98-107); CREATININE 1.18 mg/dL (0.55-1.30); GLUCOSE 197 mg/dL (70-99); POTASSIUM 3.4 mmol/L (3.5-5.1); SODIUM SERUM 139 mmol/L (136-145); UREA NITROGEN, BLOOD 50 mg/dL (8-21)
[2020-01-02] MEDS: MEROPENEM 500 MG in NS 50 ML IV SCH ×3 (06:14→22:32)
[2020-01-02] MEDS: LEVOTHYROXINE SODIUM 0.075 MG TABLET NG SCH (07:00)
[2020-01-02] MEDS: BUDESONIDE 0.5 MG/2 ML AMPUL.NEB INH SCH ×2 (07:57→19:43)
[2020-01-02] MEDS: PROPOFOL DRIP 100 ML IV PRN ×2 (08:12→17:43)
[2020-01-02] MEDS: DOCUSATE SODIUM 100 MG/10 ML UDC GT SCH ×2 (08:14→20:12)
[2020-01-02] MEDS: QUEtiapine FUMARATE 25 MG TABLET GT SCH ×2 (08:14→20:13)
[2020-01-02] MEDS: THEOPHYLLINE ANHYDROUS 80 MG/15 ML UDC GT SCH ×2 (08:14→20:14)
[2020-01-02] MEDS: CYANOCOBALAMIN 1000 mCg TABLET NG SCH (08:14)
[2020-01-02] MEDS: ASCORBIC ACID 500 MG TABLET NG SCH (08:14)
[2020-01-02] MEDS: HEPARIN SODIUM,PORCINE 5,000 UNITS/ML VIAL SUBCUT SCH ×2 (08:15→20:15)
[2020-01-02] MEDS: CHOLECALCIFEROL (VITAMIN D3) 2,000 UNIT TABLET NG SCH (08:15)
[2020-01-02] MEDS: methylPREDNISolone SOD SUCC 40 MG/ML VIAL IVP SCH ×2 (08:49→20:12)
[2020-01-02] MEDS: FUROSEMIDE 20 MG/2 ML VIAL IVP SCH ×2 (08:50→20:13)
[2020-01-02] MEDS: POTASSIUM CHLORIDE 10 MEQ TAB.PRT.SR NG ONE ×2 (12:00→13:47)
[2020-01-02] MEDS ORDERED: LORazepam 2 MG/ML VIAL IVP PRN (12:30)
[2020-01-02] MEDS ORDERED: MORPHINE 4 MG/ML INJ. SYRINGE IVP PRN (13:00)
[2020-01-02] MEDS: FLUCONAZOLE 100 mg/ NS 50 ML IV SCH (13:47)
[2020-01-02] MEDS: HYDROcodone/ACETAMIN 7.5-325 MG TAB GT PRN (15:38)
[2020-01-02] MEDS: KCL 20 mEq in NS 1000 mL 1,000 ML IV SCH (17:40)
[2020-01-02] MEDS: MONTELUKAST 10 MG TABLET GT SCH (17:40)
[2020-01-03] VITALS (36 sets, daily range): BP systolic 99–141
[2020-01-03] MEDS: PROPOFOL DRIP 100 ML IV PRN ×2 (05:24→09:50)
[2020-01-03 05:44] LABS: BASOPHILS # (AUTO) 0.1 K/uL (0.0-0.2); BASOPHILS % (AUTO) 0.6 % (0.0-2.0); EOSINOPHILS % (AUTO) 0.1 % (0.0-4.0); LYMPHOCYTES # (AUTO) 0.3 K/uL (1.0-5.5); LYMPHOCYTES % (AUTO) 1.8 % (20.5-51.5); MEAN CORPUSCULAR HEMOGLOBIN 30 pg (27-31); MEAN CORPUSCULAR HGB CONC 33 % (32-36); MEAN CORPUSCULAR VOLUME 89 fL (79.0-98.0); MONOCYTES # (AUTO) 0.5 K/uL (0.0-1.0); MONOCYTES % (AUTO) 3.3 % (1.7-9.3); NEUTROPHILS # (AUTO) 14.8 K/uL (1.8-7.7); NEUTROPHILS % (AUTO) 94.2 % (40.0-70.0); PLATELET COUNT (AUTO) 223 K/uL (130-430); RED BLOOD CELL COUNT(AUTO) 3.36 MIL/uL (4.2-6.2); RED CELL DISTRIBUTION WIDTH 14.5 % (9.0-15.0); WHITE BLOOD COUNT (AUTO) 15.7 K/uL (4.8-10.8)
[2020-01-03 05:56] LABS: ANION GAP 11 (5-15); CALCIUM 8.1 mg/dL (8.4-11.0); CHLORIDE 111 mmol/L (98-107); GLUCOSE 135 mg/dL (70-99); POTASSIUM 4.1 mmol/L (3.5-5.1); SODIUM SERUM 144 mmol/L (136-145); UREA NITROGEN, BLOOD 51 mg/dL (8-21)
[2020-01-03] MEDS: MEROPENEM 500 MG in NS 50 ML IV SCH ×3 (05:56→22:09)
[2020-01-03] MEDS: LEVOTHYROXINE SODIUM 0.075 MG TABLET NG SCH (06:13)
[2020-01-03] MEDS: IPRATROPIUM/ALBUTEROL SULFATE 3 ML AMPUL.NEB (DUONEB) INH SCH ×3 (07:37→19:00)
[2020-01-03] MEDS: BUDESONIDE 0.5 MG/2 ML AMPUL.NEB INH SCH ×2 (07:37→19:00)
[2020-01-03] MEDS: methylPREDNISolone SOD SUCC 40 MG/ML VIAL IVP SCH ×2 (08:30→22:09)
[2020-01-03] MEDS: QUEtiapine FUMARATE 25 MG TABLET GT SCH ×2 (08:30→22:08)
[2020-01-03] MEDS: FUROSEMIDE 20 MG/2 ML VIAL IVP SCH ×2 (08:30→22:08)
[2020-01-03] MEDS: DOCUSATE SODIUM 100 MG/10 ML UDC GT SCH ×2 (08:30→22:06)
[2020-01-03] MEDS: HEPARIN SODIUM,PORCINE 5,000 UNITS/ML VIAL SUBCUT SCH ×2 (08:31→21:00)
[2020-01-03] MEDS: ASCORBIC ACID 500 MG TABLET NG SCH (08:31)
[2020-01-03] MEDS: CHOLECALCIFEROL (VITAMIN D3) 2,000 UNIT TABLET NG SCH (08:31)
[2020-01-03] MEDS: CYANOCOBALAMIN 1000 mCg TABLET NG SCH (08:32)
[2020-01-03] MEDS: THEOPHYLLINE ANHYDROUS 80 MG/15 ML UDC GT SCH ×2 (08:32→22:06)
[2020-01-03] MEDS: FLUCONAZOLE 100 mg/ NS 50 ML IV SCH (11:42)
[2020-01-03] MEDS ORDERED: fentaNYL CITRATE/PF 100 MCG/2 ML AMP IVP PRN (15:45)
[2020-01-03] MEDS: MONTELUKAST 10 MG TABLET GT SCH (17:20)
[2020-01-03] MEDS: LORazepam 2 MG/ML VIAL IVP PRN (18:04)
[2020-01-04] VITALS (30 sets, daily range): BP systolic 105–146
[2020-01-04] MEDS: IPRATROPIUM/ALBUTEROL SULFATE 3 ML AMPUL.NEB (DUONEB) INH SCH ×4 (01:00→19:54)
[2020-01-04] MEDS: LORazepam 2 MG/ML VIAL IVP PRN ×2 (01:42→13:41)
[2020-01-04 05:10] LABS: BASOPHILS % (AUTO) 0.3 % (0.0-2.0); HEMATOCRIT 27.4 % (36-48); LYMPHOCYTES # (AUTO) 0.2 K/uL (1.0-5.5); LYMPHOCYTES % (AUTO) 1.8 % (20.5-51.5); MEAN CORPUSCULAR HEMOGLOBIN 29 pg (27-31); MEAN CORPUSCULAR HGB CONC 33 % (32-36); MEAN CORPUSCULAR VOLUME 90 fL (79.0-98.0); MONOCYTES # (AUTO) 0.3 K/uL (0.0-1.0); MONOCYTES % (AUTO) 2.8 % (1.7-9.3); NEUTROPHILS % (AUTO) 95.1 % (40.0-70.0); PLATELET COUNT (AUTO) 172 K/uL (130-430); RED BLOOD CELL COUNT(AUTO) 3.05 MIL/uL (4.2-6.2); RED CELL DISTRIBUTION WIDTH 14.4 % (9.0-15.0); WHITE BLOOD COUNT (AUTO) 11.6 K/uL (4.8-10.8)
[2020-01-04 05:24] LABS: ANION GAP 11 (5-15); CALCIUM 7.9 mg/dL (8.4-11.0); CHLORIDE 112 mmol/L (98-107); CREATININE 1.05 mg/dL (0.55-1.30); GLUCOSE 158 mg/dL (70-99); POTASSIUM 3.5 mmol/L (3.5-5.1); SODIUM SERUM 146 mmol/L (136-145); UREA NITROGEN, BLOOD 49 mg/dL (8-21)
[2020-01-04] MEDS: HYDROmorphone 1 MG INJ. 1 MG/ML AMPUL IVP PRN ×2 (05:40→22:16)
[2020-01-04] MEDS: MEROPENEM 500 MG in NS 50 ML IV SCH ×3 (06:35→22:28)
[2020-01-04] MEDS: LEVOTHYROXINE SODIUM 0.075 MG TABLET NG SCH (06:36)
[2020-01-04] MEDS: BUDESONIDE 0.5 MG/2 ML AMPUL.NEB INH SCH ×2 (07:00→19:54)
[2020-01-04] MEDS: DOCUSATE SODIUM 100 MG/10 ML UDC GT SCH ×2 (08:37→22:18)
[2020-01-04] MEDS: CHOLECALCIFEROL (VITAMIN D3) 2,000 UNIT TABLET NG SCH (08:38)
[2020-01-04] MEDS: FUROSEMIDE 20 MG/2 ML VIAL IVP SCH ×2 (08:38→22:20)
[2020-01-04] MEDS: QUEtiapine FUMARATE 25 MG TABLET GT SCH ×2 (08:38→22:19)
[2020-01-04] MEDS: ASCORBIC ACID 500 MG TABLET NG SCH (08:38)
[2020-01-04] MEDS: methylPREDNISolone SOD SUCC 40 MG/ML VIAL IVP SCH ×2 (08:39→22:21)
[2020-01-04] MEDS: HEPARIN SODIUM,PORCINE 5,000 UNITS/ML VIAL SUBCUT SCH ×2 (08:40→22:24)
[2020-01-04] MEDS: CYANOCOBALAMIN 1000 mCg TABLET NG SCH (08:42)
[2020-01-04] MEDS: THEOPHYLLINE ANHYDROUS 80 MG/15 ML UDC GT SCH ×2 (08:42→22:19)
[2020-01-04] MEDS: FLUCONAZOLE 100 mg/ NS 50 ML IV SCH (12:12)
[2020-01-04] MEDS: MONTELUKAST 10 MG TABLET GT SCH (17:40)
[2020-01-04] MEDS: INSULIN LISPRO SLIDING SCALE 100 UNITS/ML VIAL (humaLOG) SUBCUT PRN (17:54)
[2020-01-05] VITALS (21 sets, daily range): BP systolic 92–133
[2020-01-05] MEDS: IPRATROPIUM/ALBUTEROL SULFATE 3 ML AMPUL.NEB (DUONEB) INH SCH ×4 (01:14→19:20)
[2020-01-05] MEDS: LORazepam 2 MG/ML VIAL IVP PRN ×3 (01:50→12:30)
[2020-01-05] MEDS: MEROPENEM 500 MG in NS 50 ML IV SCH ×3 (06:25→21:58)
[2020-01-05] MEDS: LEVOTHYROXINE SODIUM 0.075 MG TABLET NG SCH (06:26)
[2020-01-05 06:48] LABS: ANION GAP 9 (5-15); CALCIUM 8.2 mg/dL (8.4-11.0); CHLORIDE 114 mmol/L (98-107); CREATININE 1.09 mg/dL (0.55-1.30); GLUCOSE 131 mg/dL (70-99); SODIUM SERUM 148 mmol/L (136-145); UREA NITROGEN, BLOOD 52 mg/dL (8-21)
[2020-01-05] MEDS: BUDESONIDE 0.5 MG/2 ML AMPUL.NEB INH SCH ×2 (07:08→19:35)
[2020-01-05] MEDS: CHOLECALCIFEROL (VITAMIN D3) 2,000 UNIT TABLET NG SCH (09:27)
[2020-01-05] MEDS: QUEtiapine FUMARATE 25 MG TABLET GT SCH ×2 (09:27→21:51)
[2020-01-05] MEDS: methylPREDNISolone SOD SUCC 40 MG/ML VIAL IVP SCH ×2 (09:28→21:52)
[2020-01-05] MEDS: ASCORBIC ACID 500 MG TABLET NG SCH (09:28)
[2020-01-05] MEDS: FUROSEMIDE 20 MG/2 ML VIAL IVP SCH ×2 (09:29→21:51)
[2020-01-05] MEDS: DOCUSATE SODIUM 100 MG/10 ML UDC GT SCH ×2 (09:30→21:49)
[2020-01-05] MEDS: THEOPHYLLINE ANHYDROUS 80 MG/15 ML UDC GT SCH ×2 (09:32→21:50)
[2020-01-05] MEDS: CYANOCOBALAMIN 1000 mCg TABLET NG SCH (09:32)
[2020-01-05] MEDS: HEPARIN SODIUM,PORCINE 5,000 UNITS/ML VIAL SUBCUT SCH ×2 (09:33→21:55)
[2020-01-05] MEDS ORDERED: POTASSIUM CHLORIDE 40 MEQ, LIDOCAINE JECT 2% PF 100 MG 50 MG in NS 250 ML IV ONE (10:00)
[2020-01-05 10:39] LABS: BASOPHILS # (AUTO) 0.1 K/uL (0.0-0.2); BASOPHILS % (AUTO) 0.4 % (0.0-2.0); EOSINOPHILS # (AUTO) 0.1 K/uL (0.0-0.4); EOSINOPHILS % (AUTO) 0.4 % (0.0-4.0); HEMATOCRIT 28.1 % (36-48); HEMOGLOBIN 9.2 g/dL (12.0-16.0); LYMPHOCYTES # (AUTO) 0.9 K/uL (1.0-5.5); LYMPHOCYTES % (AUTO) 7.2 % (20.5-51.5); MEAN CORPUSCULAR HEMOGLOBIN 30 pg (27-31); MEAN CORPUSCULAR HGB CONC 33 % (32-36); MEAN CORPUSCULAR VOLUME 91 fL (79.0-98.0); MONOCYTES # (AUTO) 0.6 K/uL (0.0-1.0); MONOCYTES % (AUTO) 4.4 % (1.7-9.3); NEUTROPHILS # (AUTO) 11.3 K/uL (1.8-7.7); NEUTROPHILS % (AUTO) 87.6 % (40.0-70.0); PLATELET COUNT (AUTO) 164 K/uL (130-430); RED BLOOD CELL COUNT(AUTO) 3.09 MIL/uL (4.2-6.2); RED CELL DISTRIBUTION WIDTH 14.8 % (9.0-15.0); WHITE BLOOD COUNT (AUTO) 12.9 K/uL (4.8-10.8)
[2020-01-05] MEDS: FLUCONAZOLE 100 mg/ NS 50 ML IV SCH (12:26)
[2020-01-05] MEDS: ACETAMINOPHEN 650 MG/20.3 ML UDC GT PRN (12:30)
[2020-01-05] MEDS: INSULIN LISPRO SLIDING SCALE 100 UNITS/ML VIAL (humaLOG) SUBCUT PRN ×2 (12:50→17:33)
[2020-01-05] MEDS ORDERED: POTASSIUM CHLORIDE 20 MEQ/PKT PACKET GT ONE (13:15)
[2020-01-05] MEDS: HYDROmorphone 1 MG INJ. 1 MG/ML AMPUL IVP PRN (14:00)
[2020-01-05] MEDS: MONTELUKAST 10 MG TABLET GT SCH (17:16)
[2020-01-06] MEDS: IPRATROPIUM/ALBUTEROL SULFATE 3 ML AMPUL.NEB (DUONEB) INH SCH ×4 (01:24→20:05)
[2020-01-06 03:43] VITALS: BP_SYST 153
[2020-01-06] MEDS: MEROPENEM 500 MG in NS 50 ML IV SCH (05:09)
[2020-01-06] MEDS: LEVOTHYROXINE SODIUM 0.075 MG TABLET NG SCH (05:09)
[2020-01-06] MEDS: INSULIN LISPRO SLIDING SCALE 100 UNITS/ML VIAL (humaLOG) SUBCUT PRN (05:56)
[2020-01-06 06:48] LABS: BASOPHILS % (AUTO) 0.2 % (0.0-2.0); HEMATOCRIT 30.1 % (36-48); HEMOGLOBIN 9.9 g/dL (12.0-16.0); LYMPHOCYTES # (AUTO) 0.5 K/uL (1.0-5.5); LYMPHOCYTES % (AUTO) 3.9 % (20.5-51.5); MEAN CORPUSCULAR HEMOGLOBIN 30 pg (27-31); MEAN CORPUSCULAR HGB CONC 33 % (32-36); MEAN CORPUSCULAR VOLUME 90 fL (79.0-98.0); MONOCYTES # (AUTO) 0.3 K/uL (0.0-1.0); MONOCYTES % (AUTO) 2.1 % (1.7-9.3); NEUTROPHILS # (AUTO) 11.9 K/uL (1.8-7.7); NEUTROPHILS % (AUTO) 93.8 % (40.0-70.0); PLATELET COUNT (AUTO) 179 K/uL (130-430); RED BLOOD CELL COUNT(AUTO) 3.34 MIL/uL (4.2-6.2); RED CELL DISTRIBUTION WIDTH 14.8 % (9.0-15.0); WHITE BLOOD COUNT (AUTO) 12.6 K/uL (4.8-10.8)
[2020-01-06 06:57] LABS: ALANINE AMINOTRANSFERASE 26 U/L (12-78); ALBUMIN 2.1 g/dL (3.4-4.8); ANION GAP 9 (5-15); ASPARTATE AMINOTRANSFERASE 18 U/L (10-37); C-REACTIVE PROTEIN QUANT 7.2 mg/dL (0-0.5); CALCIUM 8.6 mg/dL (8.4-11.0); CHLORIDE 112 mmol/L (98-107); CREATININE 1.14 mg/dL (0.55-1.30); GLUCOSE 160 mg/dL (70-99); POTASSIUM 3.7 mmol/L (3.5-5.1); SODIUM SERUM 144 mmol/L (136-145); TOTAL BILIRUBIN 0.6 mg/dL (0.0-1.0); UREA NITROGEN, BLOOD 51 mg/dL (8-21)
[2020-01-06] MEDS: BUDESONIDE 0.5 MG/2 ML AMPUL.NEB INH SCH ×2 (07:38→20:06)
[2020-01-06 07:55] VITALS: BP_SYST 139
[2020-01-06 08:44] LABS: ERYTHROCYTE SEDIMENTATION RATE 32 MM/HR (0-20)
[2020-01-06] MEDS: methylPREDNISolone SOD SUCC 40 MG/ML VIAL IVP SCH ×2 (10:08→22:14)
[2020-01-06] MEDS: DOCUSATE SODIUM 100 MG/10 ML UDC GT SCH ×2 (10:08→22:12)
[2020-01-06] MEDS: THEOPHYLLINE ANHYDROUS 80 MG/15 ML UDC GT SCH ×2 (10:09→22:19)
[2020-01-06] MEDS: ASCORBIC ACID 500 MG TABLET NG SCH (10:10)
[2020-01-06] MEDS: CYANOCOBALAMIN 1000 mCg TABLET NG SCH (10:10)
[2020-01-06] MEDS: CHOLECALCIFEROL (VITAMIN D3) 2,000 UNIT TABLET NG SCH (10:10)
[2020-01-06] MEDS: HEPARIN SODIUM,PORCINE 5,000 UNITS/ML VIAL SUBCUT SCH ×2 (10:15→22:17)
[2020-01-06] MEDS: FUROSEMIDE 20 MG/2 ML VIAL IVP SCH (10:22)
[2020-01-06] MEDS: QUEtiapine FUMARATE 25 MG TABLET GT SCH ×2 (10:22→22:14)
[2020-01-06 12:00] VITALS: BP_SYST 144
[2020-01-06] MEDS: MICAFUNGIN SODIUM 100 MG in NS 100 ML IV SCH (12:16)
[2020-01-06 16:00] VITALS: BP_SYST 138
[2020-01-06] MEDS: MONTELUKAST 10 MG TABLET GT SCH (18:48)
[2020-01-06 20:00] VITALS: BP_SYST 142
[2020-01-06] MEDS: ACETAMINOPHEN 650 MG/20.3 ML UDC GT PRN (22:12)
[2020-01-06] MEDS: CEFEPIME 0.5 GM in D5W 50 ML IV SCH (22:28)
[2020-01-07] VITALS: BP_SYST 152
[2020-01-07] MEDS: IPRATROPIUM/ALBUTEROL SULFATE 3 ML AMPUL.NEB (DUONEB) INH SCH ×4 (01:26→20:01)
[2020-01-07] MEDS: LORazepam 2 MG/ML VIAL IVP PRN ×2 (01:36→18:51)
[2020-01-07] MEDS: INSULIN LISPRO SLIDING SCALE 100 UNITS/ML VIAL (humaLOG) SUBCUT PRN ×2 (05:47→13:01)
[2020-01-07] MEDS: LEVOTHYROXINE SODIUM 0.075 MG TABLET NG SCH (06:30)
[2020-01-07 07:39] LABS: ANION GAP 9 (5-15); CALCIUM 8.3 mg/dL (8.4-11.0); CHLORIDE 116 mmol/L (98-107); CREATININE 1.06 mg/dL (0.55-1.30); GLUCOSE 186 mg/dL (70-99); POTASSIUM 3.5 mmol/L (3.5-5.1); SODIUM SERUM 148 mmol/L (136-145); UREA NITROGEN, BLOOD 55 mg/dL (8-21)
[2020-01-07] MEDS: BUDESONIDE 0.5 MG/2 ML AMPUL.NEB INH SCH ×2 (07:39→20:03)
[2020-01-07 08:00] VITALS: BP_SYST 137
[2020-01-07] MEDS: ASCORBIC ACID 500 MG TABLET NG SCH (08:26)
[2020-01-07] MEDS: CHOLECALCIFEROL (VITAMIN D3) 2,000 UNIT TABLET NG SCH (08:26)
[2020-01-07] MEDS: CEFEPIME 0.5 GM in D5W 50 ML IV SCH ×2 (08:26→22:52)
[2020-01-07] MEDS: CYANOCOBALAMIN 1000 mCg TABLET NG SCH (08:26)
[2020-01-07] MEDS: DOCUSATE SODIUM 100 MG/10 ML UDC GT SCH ×2 (08:26→23:09)
[2020-01-07] MEDS: FUROSEMIDE 20 MG TABLET PO SCH (08:27)
[2020-01-07] MEDS: THEOPHYLLINE ANHYDROUS 80 MG/15 ML UDC GT SCH ×2 (08:28→22:52)
[2020-01-07] MEDS: HEPARIN SODIUM,PORCINE 5,000 UNITS/ML VIAL SUBCUT SCH ×2 (08:29→23:01)
[2020-01-07] MEDS: methylPREDNISolone SOD SUCC 40 MG/ML VIAL IVP SCH (08:32)
[2020-01-07] MEDS ORDERED: COMMUNICATION ORDER XX ONE (10:15)
[2020-01-07 12:00] VITALS: BP_SYST 137
[2020-01-07 12:02] VITALS: BP_SYST 137
[2020-01-07] MEDS: MICAFUNGIN SODIUM 100 MG in NS 100 ML IV SCH (12:57)
[2020-01-07 16:00] VITALS: BP_SYST 162
[2020-01-07] MEDS: MONTELUKAST 10 MG TABLET GT SCH (18:34)
[2020-01-07 20:00] VITALS: BP_SYST 170
[2020-01-07] MEDS: QUEtiapine FUMARATE 25 MG TABLET GT SCH (22:53)
[2020-01-07] MEDS: HYDROcodone/ACETAMIN 7.5-325 MG TAB GT PRN (22:54)
[2020-01-08] VITALS: BP_SYST 138
[2020-01-08] MEDS: IPRATROPIUM/ALBUTEROL SULFATE 3 ML AMPUL.NEB (DUONEB) INH SCH ×4 (01:57→20:23)
[2020-01-08] MEDS: LEVOTHYROXINE SODIUM 0.075 MG TABLET NG SCH (05:57)
[2020-01-08 06:45] LABS: ANION GAP 6 (5-15); CALCIUM 8.4 mg/dL (8.4-11.0); CHLORIDE 115 mmol/L (98-107); CREATININE 0.94 mg/dL (0.55-1.30); GLUCOSE 136 mg/dL (70-99); POTASSIUM 3.1 mmol/L (3.5-5.1); SODIUM SERUM 147 mmol/L (136-145); UREA NITROGEN, BLOOD 55 mg/dL (8-21)
[2020-01-08] MEDS: BUDESONIDE 0.5 MG/2 ML AMPUL.NEB INH SCH ×2 (07:24→20:23)
[2020-01-08 08:00] VITALS: BP_SYST 156
[2020-01-08] MEDS: ASCORBIC ACID 500 MG TABLET NG SCH (08:56)
[2020-01-08] MEDS: DOCUSATE SODIUM 100 MG/10 ML UDC GT SCH ×2 (08:56→21:58)
[2020-01-08] MEDS: methylPREDNISolone SOD SUCC 40 MG/ML VIAL IVP SCH (08:56)
[2020-01-08] MEDS: CYANOCOBALAMIN 1000 mCg TABLET NG SCH (08:56)
[2020-01-08] MEDS: CHOLECALCIFEROL (VITAMIN D3) 2,000 UNIT TABLET NG SCH (08:57)
[2020-01-08] MEDS: CEFEPIME 0.5 GM in D5W 50 ML IV SCH ×2 (08:57→22:00)
[2020-01-08] MEDS: THEOPHYLLINE ANHYDROUS 80 MG/15 ML UDC GT SCH ×2 (08:58→21:58)
[2020-01-08] MEDS: FUROSEMIDE 20 MG TABLET PO SCH (09:01)
[2020-01-08] MEDS: HEPARIN SODIUM,PORCINE 5,000 UNITS/ML VIAL SUBCUT SCH ×2 (09:15→21:58)
[2020-01-08] MEDS ORDERED: MILK OF MAGNESIA 30 ML UDC GT PRN (09:45)
[2020-01-08] MEDS ORDERED: POTASSIUM CHLORIDE 20 MEQ TAB.PRT.SR GT ONE (10:00)
[2020-01-08] MEDS ORDERED: POTASSIUM CHLORIDE 40 MEQ, LIDOCAINE JECT 2% PF 100 MG 50 MG in NS 250 ML IV ONE (11:00)
[2020-01-08 12:00] VITALS: BP_SYST 140
[2020-01-08] MEDS: LORazepam 2 MG/ML VIAL IVP PRN ×2 (12:13→18:25)
[2020-01-08] MEDS: MICAFUNGIN SODIUM 100 MG in NS 100 ML IV SCH (12:13)
[2020-01-08] MEDS: HYDROmorphone 1 MG INJ. 1 MG/ML AMPUL IVP PRN (14:17)
[2020-01-08 16:00] VITALS: BP_SYST 140
[2020-01-08] MEDS: MONTELUKAST 10 MG TABLET GT SCH (18:13)
[2020-01-08 20:00] VITALS: BP_SYST 154
[2020-01-08] MEDS: QUEtiapine FUMARATE 25 MG TABLET GT SCH (21:59)
[2020-01-09] MEDS: IPRATROPIUM/ALBUTEROL SULFATE 3 ML AMPUL.NEB (DUONEB) INH SCH ×3 (01:00→12:10)
[2020-01-09 01:34] VITALS: BP_SYST 148
[2020-01-09 03:09] VITALS: BP_SYST 99
[2020-01-09] MEDS: LEVOTHYROXINE SODIUM 0.075 MG TABLET NG SCH (07:00)
[2020-01-09] MEDS: BUDESONIDE 0.5 MG/2 ML AMPUL.NEB INH SCH (07:25)
[2020-01-09 08:00] VITALS: BP_SYST 140
[2020-01-09 08:17] LABS: ANION GAP 7 (5-15); CALCIUM 8.4 mg/dL (8.4-11.0); CHLORIDE 114 mmol/L (98-107); CREATININE 0.85 mg/dL (0.55-1.30); GLUCOSE 127 mg/dL (70-99); POTASSIUM 3.7 mmol/L (3.5-5.1); SODIUM SERUM 146 mmol/L (136-145); UREA NITROGEN, BLOOD 50 mg/dL (8-21)
[2020-01-09] MEDS ORDERED: POTASSIUM CHLORIDE 20 MEQ/PKT PACKET GT SCH (09:00)
[2020-01-09] MEDS: THEOPHYLLINE ANHYDROUS 80 MG/15 ML UDC GT SCH (09:00)
[2020-01-09] MEDS: CEFEPIME 0.5 GM in D5W 50 ML IV SCH (09:52)
[2020-01-09] MEDS: DOCUSATE SODIUM 100 MG/10 ML UDC GT SCH (09:52)
[2020-01-09] MEDS: methylPREDNISolone SOD SUCC 40 MG/ML VIAL IVP SCH (09:53)
[2020-01-09] MEDS: CYANOCOBALAMIN 1000 mCg TABLET NG SCH (09:53)
[2020-01-09] MEDS: FUROSEMIDE 20 MG TABLET PO SCH (09:53)
[2020-01-09] MEDS: ASCORBIC ACID 500 MG TABLET NG SCH (09:53)
[2020-01-09] MEDS: LORazepam 2 MG/ML VIAL IVP PRN (09:54)
[2020-01-09] MEDS: CHOLECALCIFEROL (VITAMIN D3) 2,000 UNIT TABLET NG SCH (09:54)
[2020-01-09] MEDS: HEPARIN SODIUM,PORCINE 5,000 UNITS/ML VIAL SUBCUT SCH (09:55)
[2020-01-09 12:00] VITALS: BP_SYST 125
[2020-01-09] MEDS: MICAFUNGIN SODIUM 100 MG in NS 100 ML IV SCH (12:24)
[2020-01-09] MEDS: INSULIN LISPRO SLIDING SCALE 100 UNITS/ML VIAL (humaLOG) SUBCUT PRN ×2 (12:26→17:26)
[2020-01-09 16:19] VITALS: BP_SYST 125
[2020-01-09] MEDS ORDERED: MICA100V IV (16:54)
[2020-01-09] MEDS ORDERED: CEFE1PIG3 IV (16:55)
[2020-01-09 17:34] VITALS: BP_SYST 158
== END 2020-01-09 18:35 | DRG 4 ==
LOC: SED 11:13 → STU 15:18 → SIC 12-18 14:17 → STU 01-05 14:31
PROVIDERS: ADMIT Internal Medicine; ATTEND Internal Medicine
PROC: 5A09357 Assistance with Respiratory Ventilation, Less than 24 Consecutive Hours, Continuous Positive Airway Pressure (ICD-10-PCS; 2019-12-18)
PROC: 5A09357 Assistance with Respiratory Ventilation, Less than 24 Consecutive Hours, Continuous Positive Airway Pressure (ICD-10-PCS; 2019-12-19)
PROC: 5A1955Z Respiratory Ventilation, Greater than 96 Consecutive Hours (ICD-10-PCS; 2019-12-20)
PROC: 0BH17EZ Insertion of Endotracheal Airway into Trachea, Via Natural or Artificial Opening (ICD-10-PCS; 2019-12-20)
PROC: 5A09357 Assistance with Respiratory Ventilation, Less than 24 Consecutive Hours, Continuous Positive Airway Pressure (ICD-10-PCS; 2019-12-20)
PROC: 02HV33Z Insertion of Infusion Device into Superior Vena Cava, Percutaneous Approach (ICD-10-PCS; 2019-12-21)
PROC: 0B9D7ZX Drainage of Right Middle Lung Lobe, Via Natural or Artificial Opening, Diagnostic (ICD-10-PCS; 2019-12-27)
PROC: 0DH63UZ Insertion of Feeding Device into Stomach, Percutaneous Approach (ICD-10-PCS; 2020-01-02)
PROC: 0B110F4 Bypass Trachea to Cutaneous with Tracheostomy Device, Open Approach (ICD-10-PCS; principal; 2020-01-02 09:30)
DX: A41.89 Other specified sepsis (principal); J18.9 Pneumonia, unspecified organism; E43 Unspecified severe protein-calorie malnutrition; J96.21 Acute and chronic respiratory failure with hypoxia; J96.22 Acute and chronic respiratory failure with hypercapnia; R65.21 Severe sepsis with septic shock; J45.901 Unspecified asthma with (acute) exacerbation; J44.1 Chronic obstructive pulmonary disease with (acute) exacerbation; J44.0 Chronic obstructive pulmonary disease with (acute) lower respiratory infection; L03.116 Cellulitis of left lower limb; L03.115 Cellulitis of right lower limb; G93.40 Encephalopathy, unspecified; I48.20 Chronic atrial fibrillation, unspecified; Z99.11 Dependence on respirator [ventilator] status; G60.0 Hereditary motor and sensory neuropathy; E03.9 Hypothyroidism, unspecified; R00.1 Bradycardia, unspecified; R54 Age-related physical debility; I48.0 Paroxysmal atrial fibrillation; I50.9 Heart failure, unspecified; R13.10 Dysphagia, unspecified; Y95 Nosocomial condition; Z20.828 Contact with and (suspected) exposure to other viral communicable diseases; Z79.01 Long term (current) use of anticoagulants; Z74.01 Bed confinement status; Z79.899 Other long term (current) drug therapy; Z87.81 Personal history of (healed) traumatic fracture; Z89.412 Acquired absence of left great toe; Z99.81 Dependence on supplemental oxygen; Z68.35 Body mass index [BMI] 35.0-35.9, adult; Z88.0 Allergy status to penicillin; Z88.2 Allergy status to sulfonamides; Z88.5 Allergy status to narcotic agent
CPT/HCPCS: 31624; 36415; 36600; 71045; 71250-TC; 76604; 80048; 80053; 80202-TC; 81000-TC; 82550-TC; 82728; 82803-TC; 82962; 83605; 83615-TC; 83735-TC; 83880; 84100-TC; 84443-TC; 84484; 85025; 85379; 85384-TC; 85610-TC; 85651-TC; 85730-TC; 86140; 86886; 86900; 86901; 87040-TC; 87070-TC; 87081; 87205-TC; 93005; 93306; 94002; 94003; 94640; 94660; 94760; 96365; 96368; 96375; 99285; A6209; C1751; G0378; J0330; J0456; J0461; J0692; J0696; J1030; J1100; J1170; J1450; J1644; J1940; J1956; J2001; J2060; J2185; J2248; J2704; J2765; J2930; J3010; J3370; J3480; J3490; J7030; J7040; J7050; J7060; J7120; J7626; U0003-CS